=== PATIENT | female | born 1945 | race Caucasian/White ===

== ENCOUNTER 2016-10-15 11:31 | Outpatient (CLI) | payer OTHER, MEDICAID ==
[2016-10-15] MEDS ORDERED: MIDAZOLAM 2 MG/2 ML VIAL ONE (11:33)
[2016-10-15] MEDS ORDERED: PROPOFOL/EMULSION 500 MG/50 ML BOTTLE IV ONE (11:34)
[2016-10-15] MEDS ORDERED: PROPOFOL 200 MG/20 ML VIAL ONE (11:34)
[2016-10-15] MEDS ORDERED: SUCCINYLCHOLINE CHLORIDE 200 MG/10 ML VIAL ONE (11:47)
[2016-10-15] MEDS ORDERED: ROCURONIUM 100 MG/10 ML VIAL ONE (11:47)
[2016-10-15] MEDS ORDERED: DEXAMETHASONE 10 MG/ML VIAL ONE (12:00)
[2016-10-15] MEDS ORDERED: METOCLOPRAMIDE 10 MG/2 ML VIAL ONE (12:00)
[2016-10-15] MEDS ORDERED: LIDOCAINE 2% 2 ML INJ ONE (12:00)
[2016-10-15] MEDS ORDERED: GADOBUTROL 10 ML VIAL IVP ONE (12:23)
== END 2016-10-15 16:40 | disposition home health service (06) ==
LOC: FIMAGING 11:31
PROVIDERS: ATTEND Neurological Surgery
DX: D33.2 Benign neoplasm of brain, unspecified (principal); R94.02 Abnormal brain scan; M50.322 Other cervical disc degeneration at C5-C6 level; M50.323 Other cervical disc degeneration at C6-C7 level; M99.71 Connective tissue and disc stenosis of intervertebral foramina of cervical region
CPT/HCPCS: 70553; 72141; A9585; J2250; J2704; J2765; J0330

== ENCOUNTER → 2016-10-22 | Outpatient (CLI) | payer OTHER, MEDICAID | LOC: FIMAGING 11:50 | DX: Z12.31 Encounter for screening mammogram for malignant neoplasm of breast (principal) | CPT/HCPCS: G0202 ==

== ENCOUNTER → 2016-10-27 | Outpatient (CLI) | payer OTHER, MEDICAID | LOC: FIMAGING 08:41 | PROVIDERS: ATTEND Physician Assistant | DX: Z09 Encounter for follow-up examination after completed treatment for conditions other than malignant neoplasm (principal); Z98.1 Arthrodesis status ==

== ENCOUNTER → 2016-11-07 | Outpatient (CLI) | payer OTHER, MEDICAID ==
[~2016-11-07] MED LIST: IOPAMIDOL (ISOVUE 370) 100 ML BTL IV ONE
== END ==
LOC: FIMAGING 10:16
PROVIDERS: ATTEND Psychiatry & Neurology Neurology
DX: I63.311 Cerebral infarction due to thrombosis of right middle cerebral artery (principal); R42 Dizziness and giddiness
CPT/HCPCS: 70496; 70498; Q9967

== ENCOUNTER → 2016-11-11 | Outpatient (CLI) | payer OTHER, MEDICAID | LOC: BHFA 09:15 | PROVIDERS: ATTEND Internal Medicine | DX: I63.9 Cerebral infarction, unspecified (principal) ==

== ENCOUNTER 2016-11-14 05:54 | Observation (INO) | payer OTHER, MEDICAID ==
[2016-11-14] MEDS ORDERED: ceFAZolin 2 GM/DEXTROSE 100 ML IV ONE (06:00)
[2016-11-14] MEDS ORDERED: LIDOCAINE 1% 2 ML INJ ONE (06:07)
[2016-11-14] MEDS ORDERED: LR 1,000 ML IV ONE (06:20)
[2016-11-14] MEDS ORDERED: BUPIVACAINE 0.5% 30 ML SDV ONE (06:59)
[2016-11-14] MEDS ORDERED: SKIN ADHESIVE (DERMABOND) 1 EACH TP ONE (06:59)
[2016-11-14] MEDS ORDERED: fentaNYL 250 MCG/5 ML INJ ONE (07:07)
[2016-11-14] MEDS ORDERED: PROPOFOL/EMULSION 500 MG/50 ML BOTTLE IV ONE (07:07)
[2016-11-14] MEDS ORDERED: MIDAZOLAM 2 MG/2 ML VIAL ONE (07:08)
[2016-11-14] MEDS ORDERED: ROCURONIUM 50 MG/5 ML VIAL ONE (07:10)
[2016-11-14] MEDS ORDERED: LIDOCAINE 2% 100 MG/5 ML SYR ONE (07:11)
[2016-11-14] MEDS ORDERED: diphenhydrAMINE 25 MG CAP PO PRN (08:15)
[2016-11-14] MEDS ORDERED: ACETAMINOPHEN 325 MG TAB PO PRN (08:15)
[2016-11-14] MEDS ORDERED: ONDANSETRON DISINTEGRATING 4 MG TAB PO PRN (08:15)
[2016-11-14] MEDS ORDERED: ONDANSETRON 4 MG/2 ML VIAL IVP PRN (08:15)
[2016-11-14] MEDS ORDERED: fentaNYL 100 MCG/2 ML INJ ONE (08:24)
--- NOTE | 2016-11-14 08:28 | GOP ---
[f rep ] OPERATIVE REPORT DATE OF OPERATION: 11/14/2016 SURGEON: Agustina Traylor MD ESTIMATOR LUMBER: Kirsten Knight, PAC. ANESTHESIA: General. ANESTHESIOLOGIST: Dr. Scott. PREOPERATIVE DIAGNOSIS: Ventral hernia. POSTOPERATIVE DIAGNOSIS: Ventral hernia. PROCEDURE PERFORMED: Ventral hernia repair with mesh. FINDINGS: 4 x 4 cm defect. SPECIMENS: None. ESTIMATED BLOOD LOSS: 10 cc. INDICATIONS: The patient is a 71-year-old woman who had emergency abdominal surgery. She subsequen tly developed a ventral hernia. DESCRIPTION OF PROCEDURE: The patient was brought into the operating room, placed supine on the tab le. General anesthesia was administered. Her abdomen was prepped and draped in the usual sterile f ashion. I infiltrated all sites with 0.5% Marcaine prior to making incisions. I made an incision o n the lower part of her previous scar. I dissected down through the subcutaneous tissues and the sc ar until I encountered the fascial edge. I cleared away the fascial edge which was just to the lowe r left of the midline both above and below the fascia until it was well-defined. It was approximate ly 4 x 4 cm. I closed the fascia with #1 PDS. I was unable to place a retrorectus piece of mesh du e to the scarring, and did not want to place intra-abdominal mesh, so I therefore placed an onlay. It was self-fixating ProGrip mesh. It was sutured into place in 4 corners with 0 Surgilon. I close d a layer over the mesh with 3-0 Vicryl. I closed the skin with 3-0 Vicryl, followed by 4-0 Monocry l. Dermabond applied. She was awakened in the operating room, extubated, transferred to PACU in able condition. /[id number]/MODL
[2016-11-14] MEDS ORDERED: HYDROmorphONE/DILAUDID 2 MG/ML INJ ONE (08:41)
[2016-11-14] MEDS: oxyCODONE IR 5 MG TAB PO PRN ×3 (12:30→23:35)
[2016-11-15 07:38] VITALS: BP 123/71; PULSE 53; RESP 19; TEMP 97.7; O2SAT 93
[2016-11-15] MEDS: oxyCODONE IR 5 MG TAB PO PRN (09:05)
== END 2016-11-15 11:25 | disposition home or self-care (01) ==
LOC: FSGY 05:54 → F3E 08:14
PROVIDERS: ADMIT Surgery; ATTEND Surgery
PROC: 0WUF0JZ Supplement Abdominal Wall with Synthetic Substitute, Open Approach (ICD-10-PCS; principal; 2016-11-14 07:15)
DX: K43.9 Ventral hernia without obstruction or gangrene (principal); I10 Essential (primary) hypertension; F32.9 Major depressive disorder, single episode, unspecified; F41.9 Anxiety disorder, unspecified; E03.9 Hypothyroidism, unspecified; E55.9 Vitamin D deficiency, unspecified; Z85.850 Personal history of malignant neoplasm of thyroid; Z86.73 Personal history of transient ischemic attack (TIA), and cerebral infarction without residual deficits; Z90.49 Acquired absence of other specified parts of digestive tract
CPT/HCPCS: 49560; 49568; C1781; J0690; J1170; J2001; J2250; J2704; J3010

== ENCOUNTER → 2016-12-22 | Outpatient (CLI) | payer OTHER, MEDICAID | LOC: CIMAGING 09:12 | PROVIDERS: ATTEND Neurological Surgery | DX: Z09 Encounter for follow-up examination after completed treatment for conditions other than malignant neoplasm (principal); Z98.1 Arthrodesis status; I63.9 Cerebral infarction, unspecified; R74.8 Abnormal levels of other serum enzymes | CPT/HCPCS: 72100-PO; 80076-PO ==

== ENCOUNTER → 2017-01-28 | Outpatient (CLI) | payer OTHER, MEDICAID | LOC: FIMAGING 08:22 | PROVIDERS: ATTEND Internal Medicine | DX: R93.2 Abnormal findings on diagnostic imaging of liver and biliary tract (principal); N20.0 Calculus of kidney; Z90.49 Acquired absence of other specified parts of digestive tract ==

== ENCOUNTER → 2017-03-16 | Outpatient (CLI) | payer OTHER, MEDICAID ==
[~2017-03-16] MED LIST changes: -IOPAMIDOL (ISOVUE 370) 100 ML BTL IV ONE; +IOPAMIDOL (ISOVUE-300) 100 ML BTL ONE
== END ==
LOC: CIMAGING 09:33
PROVIDERS: ATTEND Internal Medicine
DX: R11.0 Nausea (principal); F41.9 Anxiety disorder, unspecified; R63.4 Abnormal weight loss; R68.81 Early satiety; I25.10 Atherosclerotic heart disease of native coronary artery without angina pectoris; Z98.84 Bariatric surgery status; Z90.49 Acquired absence of other specified parts of digestive tract
CPT/HCPCS: 74177; Q9967

== ENCOUNTER → 2017-04-22 | Outpatient (CLI) | payer OTHER, MEDICAID | LOC: FIMAGING 08:02 | PROVIDERS: ATTEND Internal Medicine | DX: R13.10 Dysphagia, unspecified (principal); R11.0 Nausea; K44.9 Diaphragmatic hernia without obstruction or gangrene; R93.3 Abnormal findings on diagnostic imaging of other parts of digestive tract; Z98.84 Bariatric surgery status ==

== ENCOUNTER → 2017-10-06 | Outpatient (CLI) | payer OTHER, MEDICAID | LOC: FIMAGING 15:05 | PROVIDERS: ATTEND Physician Assistant | DX: M51.36 Other intervertebral disc degeneration, lumbar region (principal); Z98.1 Arthrodesis status ==

== ENCOUNTER 2017-10-15 08:59 | Outpatient (CLI) | payer OTHER, MEDICAID ==
[2017-10-15] MEDS ORDERED: NS 1,000 ML IV SCH (09:45)
[2017-10-15] MEDS ORDERED: MIDAZOLAM 2 MG/2 ML VIAL IVP PRN (09:45)
[2017-10-15] MEDS ORDERED: NALOXONE HCL 0.4 MG/ML INJ IVP PRN (09:45)
[2017-10-15] MEDS ORDERED: FLUMAZENIL 0.5 MG/5 ML MDV IVP PRN (09:45)
[2017-10-15] MEDS ORDERED: fentaNYL 100 MCG/2 ML INJ IVP PRN (09:45)
[2017-10-15] MEDS ORDERED: MEPERIDINE 25 MG/ML SYR IVP PRN (09:45)
[2017-10-15] MEDS ORDERED: PROPOFOL/EMULSION 500 MG/50 ML BOTTLE IV ONE (12:06)
[2017-10-15] MEDS ORDERED: PROPOFOL 200 MG/20 ML VIAL ONE (12:06)
[2017-10-15] MEDS ORDERED: MIDAZOLAM 2 MG/2 ML VIAL IVP ONE (12:46)
--- NOTE | 2017-10-15 12:46 | PDANEPAE ---
ANE History of Present Illness L spine, brain, mri ANE Past Medical History - Cardiovascular History Hx Hypertension: Yes Hx Arrhythmias: No Hx Chest Pain: No Hx Coronary Artery / Peripheral Vascular Disease: No Hx CHF / Valvular Disease: No Hx Palpitations: No - Pulmonary History Hx COPD: No Hx Asthma/Reactive Airway Disease: No Hx Recent Upper Respiratory Infection: No Hx Oxygen in Use at Home: No Hx Sleep Apnea: No Sleep Apnea Screening Result - Last Documented: Negative Pulmonary History Comment: TIA. - Neurologic History Hx Cerebrovascular Accident: No Hx Seizures: No Hx Dementia: No Neurologic History Comment: tia X3. migraineS 3-4 PER MONTH NOTHING HELPS. hx of back surgeries - Endocrine History Hx Diabetes: No Endocrine History Comment: thyroidectomy. hx of thyroid ca - Renal History Hx Renal Disorders: Yes Renal History Comment: incontinence at times - Liver History Hx Hepatic Disorders: No - Neurological & Psychiatric Hx Hx Neurological and Psychiatric Disorders: Yes Neurological / Psychiatric History Comment: anxiety. depression. claustrophobia - Cancer History Hx Cancer: Yes Cancer History Comment: thyroid - Congenital Disorder History Hx Congenital Disorders: No - GI History Hx Gastrointestinal Disorders: Yes Gastrointestinal History Comment: gastric bypass - Other Health History Other Health History: LT FOOT DROP. IMELDA LOWER EXT NUMBNESS. RECENT VERTIGO. OSTEOPENIA. NEUTROPENIA - Chronic Pain History Chronic Pain: Yes (chronic pain) - Surgical History Prior Surgeries: BOWEL RESECTION 12/2015. RT TOTAL HIP. left knee replacement. 4 back surgeries- rods and screws. gastric bypass 2006. thyroidectomy. hysterectomy 1994. appy. clarke ANE Review of Systems Review of systems is: negative Review of Systems: - Exercise capacity METS (RN): 3 METS ANE Patient History - Allergies Allergies/Adverse Reactions: morphine [Morphine] Allergy (Severe, Verified 10/15/17 12:23) Dyspnea aspirin [Aspirin] Allergy (Unknown, Verified 10/15/17 12:23) ibuprofen [Ibuprofen] Allergy (Unknown, Verified 10/15/17 12:23) - Home Medications Home medications: home medication list seen and reviewed Home Medications: ALPRAZolam [Xanax 0.25 MG (*)] 0.25 mg PO BID PRN 11/14/16 [Last Taken Unknown] Aspirin [Aspirin 81mg (*)] 81 mg PO DAILY 11/14/16 [Last Taken 11/14/16] Carisoprodol [Soma (*)] 350 mg PO HS PRN 11/14/16 [Last Taken 11/13/16] Cholecalciferol Vit D3 [Vitamin D3 (*)] 1,000 units PO BID 11/14/16 [Last Taken 11/14/16] Cyanocobalamin [Vitamin B12 (*)] 1,000 mcg PO DAILY 11/14/16 [Last Taken ] Diazepam [Valium 5 MG (*)] 5 mg PO Q3 PRN 11/14/16 [Last Taken Unknown] Diclofenac Sodium [Voltaren 75 MG (*)] 100 mg PO DAILY 11/14/16 [Last Taken ] FLUoxetine [Prozac 20 MG (*)] 40 mg PO BID 11/14/16 [Last Taken 10/15/17] Levothyroxine [Synthroid 112 mcg (*)] 112 mcg PO SUMOFRSA 11/14/16 [Last Taken 10/15/17] Levothyroxine [Synthroid 125 mcg (*)] 1 tab PO TUWETH 11/14/16 [Last Taken 11/13] Lisinopril [Zestril 2.5 mg (*)] 2.5 mg PO DAILY 11/14/16 [Last Taken 11/14/16] Polyethylene Glycol 3350 [Miralax 17 gm (*)] 17 gm PO HS PRN 11/14/16 [Last Taken 11/13/16] Pantoprazole Sodium 40 mg PO DAILY 10/07/17 [Last Taken Unknown] Wellbutrin 150mg XL 300 mg PO DAILY 10/07/17 [Last Taken Unknown] traZODONE 100MG (*) 100 mg PO HS 10/07/17 [Last Taken Unknown] - NPO status NPO Status: no food or drink >8 hours - Smoking Hx Smoking Status: Never smoked - Family Anes Hx Family Anes Hx: none Family Hx Anesthesia Complications: none ANE Labs/Vital Signs - Vital Signs Blood Pressure: 126/77 Heart Rate: 57 Respiratory Rate: 18 O2 Sat (%): 98 Height: 170.18 cm Weight: 59.421 kg ANE Physical Exam - Airway Neck exam: FROM Mallampati Score: Class 2 Mouth exam: normal dental/mouth exam - Pulmonary Pulmonary: no respiratory distress - Cardiovascular Cardiovascular: regular rate and rhythym - ASA Status ASA Status: III ANE Anesthesia Plan Anesthesia Plan: GA w LMA
[2017-10-15] MEDS ORDERED: GADOBUTROL 10 ML VIAL IVP ONE (13:09)
[2017-10-15 14:43] VITALS: TEMP 97.7
[2017-10-15 15:31] VITALS: BP 127/67; PULSE 60; RESP 18; O2SAT 95
[2017-10-15] MEDS ORDERED: DEXAMETHASONE 10 MG/ML VIAL ONE (18:22)
[2017-10-15] MEDS ORDERED: ONDANSETRON 4 MG/2 ML VIAL ONE (18:22)
[2017-10-15] MEDS ORDERED: LIDOCAINE 2% 2 ML INJ ONE (20:44)
== END 2017-10-15 15:28 | disposition home or self-care (01) ==
LOC: FIMAGING 08:59
PROVIDERS: ATTEND Physician Assistant
PROC: BR39ZZZ Magnetic Resonance Imaging (MRI) of Lumbar Spine (ICD-10-PCS; 2017-10-15)
PROC: B030Y0Z Magnetic Resonance Imaging (MRI) of Brain using Other Contrast, Unenhanced and Enhanced (ICD-10-PCS; principal; 2017-10-15 14:26)
DX: M54.5 Low back pain (principal); M54.12 Radiculopathy, cervical region; H81.399 Other peripheral vertigo, unspecified ear; M51.36 Other intervertebral disc degeneration, lumbar region; R93.8 Abnormal findings on diagnostic imaging of other specified body structures; Z86.011 Personal history of benign neoplasm of the brain; Z86.73 Personal history of transient ischemic attack (TIA), and cerebral infarction without residual deficits; Z98.1 Arthrodesis status
CPT/HCPCS: 70553; 72148; A9585; J1100; J2250; J2405; J2704

== ENCOUNTER 2017-12-07 14:35 | Outpatient (CLI) | payer OTHER, MEDICAID ==
[2017-12-07] MEDS ORDERED: PROPOFOL/EMULSION 500 MG/50 ML BOTTLE IV ONE (14:43)
[2017-12-07] MEDS ORDERED: PROPOFOL 200 MG/20 ML VIAL ONE (14:43)
[2017-12-07] MEDS ORDERED: NS 1,000 ML IV SCH (15:15)
--- NOTE | 2017-12-07 15:39 | PDANEPAE ---
ANE History of Present Illness mri R hip ANE Past Medical History - Cardiovascular History Hx Hypertension: Yes Hx Arrhythmias: No Hx Chest Pain: No Hx Coronary Artery / Peripheral Vascular Disease: No Hx CHF / Valvular Disease: No Hx Palpitations: No Cardiovascular History Comment: currently off BP meds per PCP - Pulmonary History Hx COPD: No Hx Asthma/Reactive Airway Disease: No Hx Recent Upper Respiratory Infection: No Hx Oxygen in Use at Home: No Hx Sleep Apnea: No Sleep Apnea Screening Result - Last Documented: Negative Pulmonary History Comment: TIA. - Neurologic History Hx Cerebrovascular Accident: No Hx Seizures: No Hx Dementia: No Neurologic History Comment: tia X3. hx of vertigo. hx of back surgeries. meningioma removal 2011 - Endocrine History Hx Diabetes: No Endocrine History Comment: thyroidectomy. hx of thyroid ca - Renal History Hx Renal Disorders: Yes Renal History Comment: incontinence at times - Liver History Hx Hepatic Disorders: No - Neurological & Psychiatric Hx Hx Neurological and Psychiatric Disorders: Yes Neurological / Psychiatric History Comment: anxiety. depression. claustrophobia - Cancer History Hx Cancer: Yes Cancer History Comment: thyroid - Congenital Disorder History Hx Congenital Disorders: No - GI History Hx Gastrointestinal Disorders: Yes Gastrointestinal History Comment: gastric bypass ; bowel resection - Other Health History Other Health History: LT FOOT DROP. IMELDA LOWER EXT NUMBNESS. RECENT VERTIGO. OSTEOPENIA. NEUTROPENIA - Chronic Pain History Chronic Pain: Yes (chronic pain) - Surgical History Prior Surgeries: BOWEL RESECTION 12/2015. RT TOTAL HIP. left knee replacement. 4 back surgeries- rods and screws. gastric bypass 2006. thyroidectomy. hysterectomy 1994. appy. clarke. meningioma ANE Review of Systems Review of systems is: negative Review of Systems: - Exercise capacity METS (RN): 1 METS ANE Patient History - Allergies Allergies/Adverse Reactions: morphine [Morphine] Allergy (Severe, Verified 12/04/17 17:27) Dyspnea ibuprofen [Ibuprofen] Allergy (Unknown, Verified 12/04/17 17:27) - Home Medications Home medications: home medication list seen and reviewed Home Medications: ALPRAZolam [Xanax 0.25 MG (*)] 0.25 mg PO BID PRN 11/14/16 [Last Taken 12/05/17] Aspirin [Aspirin 81mg (*)] 81 mg PO DAILY 11/14/16 [Last Taken 12/07/17] Carisoprodol [Soma (*)] 350 mg PO HS PRN 11/14/16 [Last Taken 12/06/17] Cholecalciferol Vit D3 [Vitamin D3 (*)] 1,000 units PO BID 11/14/16 [Last Taken 12/07/17] Cyanocobalamin [Vitamin B12 (*)] 1,000 mcg PO DAILY 11/14/16 [Last Taken ] Diazepam [Valium 5 MG (*)] 5 mg PO Q3 PRN 11/14/16 [Last Taken 11/16/17] Diclofenac Sodium [Voltaren 75 MG (*)] 100 mg PO DAILY 11/14/16 [Last Taken ] FLUoxetine [Prozac 20 MG (*)] 40 mg PO BID 11/14/16 [Last Taken 12/07/17] Levothyroxine [Synthroid 112 mcg (*)] 112 mcg PO SUMOFRSA 11/14/16 [Last Taken 12/07/17] Levothyroxine [Synthroid 125 mcg (*)] 1 tab PO TUWETH 11/14/16 [Last Taken 12/03] Polyethylene Glycol 3350 [Miralax 17 gm (*)] 17 gm PO HS PRN 11/14/16 [Last Taken 12/06/17] Pantoprazole Sodium 40 mg PO DAILY 10/07/17 [Last Taken 12/07/17] Wellbutrin 150mg XL 450 mg PO DAILY 10/07/17 [Last Taken 12/07/17] traZODONE 100MG (*) 150 mg PO HS 10/07/17 [Last Taken 12/06/17] Gabapentin [Neurontin 300 MG (*)] 300 mg PO TID 12/04/17 [Last Taken 12/07/17] Lipase/Protease/Amylase [Creon Dr 3,000 Units Capsule] 1 each PO AC 12/04/17 [ Last Taken 12/06/17] Ondansetron HCl [Zofran] PRN 12/04/17 [Last Taken 12/03/17] Oxycodone HCl 5 mg PO Q4-6PRN PRN 12/04/17 [Last Taken 12/06/17] - NPO status NPO Status: no food or drink >8 hours - Anes Hx Anes Hx: no prior problems - Smoking Hx Smoking Status: Never smoked - Family Anes Hx Family Anes Hx: none Family Hx Anesthesia Complications: none ANE Labs/Vital Signs - Vital Signs Blood Pressure: 139/83 Heart Rate: 54 Respiratory Rate: 12 O2 Sat (%): 98 Height: 170.18 cm Weight: 59.421 kg ANE Physical Exam - Airway Neck exam: FROM Mallampati Score: Class 1 Mouth exam: normal dental/mouth exam - Pulmonary Pulmonary: no respiratory distress - Cardiovascular Cardiovascular: regular rate and rhythym - ASA Status ASA Status: III ANE Anesthesia Plan Anesthesia Plan: GA w LMA
[2017-12-07] MEDS ORDERED: SUCCINYLCHOLINE CHLORIDE 200 MG/10 ML VIAL ONE (15:45)
[2017-12-07] MEDS ORDERED: MIDAZOLAM 2 MG/2 ML VIAL ONE (15:48)
[2017-12-07] MEDS ORDERED: ONDANSETRON 4 MG/2 ML VIAL IVP PRN (17:01)
[2017-12-07] MEDS ORDERED: NALOXONE HCL 0.4 MG/ML INJ IVP PRN (17:01)
[2017-12-07] MEDS ORDERED: HYDROCODONE/APAP 5/325 TAB PO PRN (17:01)
[2017-12-07] MEDS ORDERED: fentaNYL 100 MCG/2 ML INJ IVP PRN (17:01)
[2017-12-07] MEDS ORDERED: ACETAMINOPHEN 500 MG TAB PO PRN (17:01)
[2017-12-07] MEDS ORDERED: MEPERIDINE 25 MG/ML SYR IVP PRN (17:01)
[2017-12-07] MEDS ORDERED: DEXAMETHASONE 4 MG/ML VIAL IVP PRN (17:01)
--- NOTE | 2017-12-07 17:03 | POSTANESTH ---
Post Anesthetic Evaluation Cardiovascular Status: Similar to Pre-Op Cond Respiratory Status: Normal, Stable, Similar to Pre-op Cond. Level of Consciousness/Mental Status: Can Participate in Eval, Mildly Sleepy, Arousable Pain Control: Adequate, Prn Tx Ordered Nausea/Vomiting Control: Adequate, Prn Tx Ordered Complications Possibly Related to Anesthesia: None Noted
[2017-12-07 17:39] VITALS: BP 136/77
[2017-12-07] MEDS ORDERED: LIDOCAINE 2% 2 ML INJ ONE (20:00)
[2017-12-07] MEDS ORDERED: DEXAMETHASONE 10 MG/ML VIAL ONE (20:00)
[2017-12-07] MEDS ORDERED: ONDANSETRON 4 MG/2 ML VIAL ONE (20:00)
== END 2017-12-07 18:11 | disposition home or self-care (01) ==
LOC: FIMAGING 14:35
DX: G89.28 Other chronic postprocedural pain (principal); Z96.641 Presence of right artificial hip joint; I10 Essential (primary) hypertension; F41.8 Other specified anxiety disorders; Z85.850 Personal history of malignant neoplasm of thyroid; Z98.84 Bariatric surgery status
CPT/HCPCS: 73721; J0330; J1100; J2250; J2405; J2704

== ENCOUNTER → 2018-01-12 | Outpatient (CLI) | payer OTHER, MEDICAID | LOC: FIMAGING 08:38 | PROVIDERS: ATTEND Internal Medicine Gastroenterology | DX: K44.9 Diaphragmatic hernia without obstruction or gangrene (principal); K21.9 Gastro-esophageal reflux disease without esophagitis; Z98.84 Bariatric surgery status ==

== ENCOUNTER 2018-01-21 10:44 | Outpatient (CLI) | payer OTHER, MEDICAID ==
[2018-01-21] MEDS ORDERED: PROPOFOL/EMULSION 500 MG/50 ML BOTTLE IV ONE (11:11)
[2018-01-21] MEDS ORDERED: PROPOFOL 200 MG/20 ML VIAL ONE (11:11)
[2018-01-21] MEDS ORDERED: SUCCINYLCHOLINE CHLORIDE 200 MG/10 ML VIAL ONE (11:31)
[2018-01-21] MEDS ORDERED: ROCURONIUM 100 MG/10 ML VIAL ONE (11:32)
[2018-01-21] MEDS ORDERED: MIDAZOLAM 2 MG/2 ML VIAL ONE (12:12)
[2018-01-21] MEDS ORDERED: MIDAZOLAM 2 MG/2 ML VIAL IVP ONE (12:15)
--- NOTE | 2018-01-21 12:17 | PDANEPAE ---
ANE Past Medical History - Cardiovascular History Hx Hypertension: Yes Hx Arrhythmias: No Hx Chest Pain: No Hx Coronary Artery / Peripheral Vascular Disease: No Hx CHF / Valvular Disease: No Hx Palpitations: No Cardiovascular History Comment: currently off BP meds per PCP - Pulmonary History Hx COPD: No Hx Asthma/Reactive Airway Disease: No Hx Recent Upper Respiratory Infection: No Hx Oxygen in Use at Home: No Hx Sleep Apnea: No Sleep Apnea Screening Result - Last Documented: Negative Pulmonary History Comment: TIA. - Neurologic History Hx Cerebrovascular Accident: No Hx Seizures: No Hx Dementia: No Neurologic History Comment: tia X3. hx of vertigo. hx of back surgeries. meningioma removal 2011 - Endocrine History Hx Diabetes: No Hypothyroid: Yes Hyperthyroid: No Obesity: no Endocrine History Comment: thyroidectomy. hx of thyroid ca - Renal History Hx Renal Disorders: Yes Renal History Comment: incontinence at times - Liver History Hx Hepatic Disorders: No - Neurological & Psychiatric Hx Hx Neurological and Psychiatric Disorders: Yes Neurological / Psychiatric History Comment: anxiety. depression. claustrophobia - Cancer History Hx Cancer: Yes Cancer History Comment: thyroid - Congenital Disorder History Hx Congenital Disorders: No - GI History GERD: moderate Hx Gastrointestinal Disorders: Yes Gastrointestinal History Comment: gastric bypass ; bowel resection - Other Health History Other Health History: LT FOOT DROP. IMELDA LOWER EXT NUMBNESS. RECENT VERTIGO. OSTEOPENIA. NEUTROPENIA - Chronic Pain History Chronic Pain: Yes (chronic pain) - Surgical History Prior Surgeries: BOWEL RESECTION 12/2015. RT TOTAL HIP. left knee replacement. 4 back surgeries- rods and screws. gastric bypass 2006. thyroidectomy. hysterectomy 1994. appy. clarke. meningioma ANE Review of Systems Review of Systems: - Exercise capacity METS (RN): 3 METS ANE Patient History - Allergies Allergies/Adverse Reactions: morphine [Morphine] Allergy (Severe, Verified 01/15/18 16:01) Dyspnea ibuprofen [Ibuprofen] Allergy (Unknown, Verified 01/15/18 16:01) - Home Medications Home Medications: ALPRAZolam [Xanax 0.25 MG (*)] 0.25 mg PO BID PRN 11/14/16 [Last Taken 01/20/18] Aspirin [Aspirin 81mg (*)] 81 mg PO DAILY 11/14/16 [Last Taken 01/20/18] Carisoprodol [Soma (*)] 350 mg PO HS PRN 11/14/16 [Last Taken 01/20/18] Cholecalciferol Vit D3 [Vitamin D3 (*)] 1,000 units PO BID 11/14/16 [Last Taken 01/20/18] Cyanocobalamin [Vitamin B12 (*)] 1,000 mcg PO DAILY 11/14/16 [Last Taken ] Diazepam [Valium 5 MG (*)] 5 mg PO Q3 PRN 11/14/16 [Last Taken 01/20/18] Diclofenac Sodium [Voltaren 75 MG (*)] 100 mg PO DAILY 11/14/16 [Last Taken ] FLUoxetine [Prozac 20 MG (*)] 40 mg PO BID 11/14/16 [Last Taken 01/20/18] Levothyroxine [Synthroid 112 mcg (*)] 112 mcg PO SUMOFRSA 11/14/16 [Last Taken 01/20/18] Levothyroxine [Synthroid 125 mcg (*)] 1 tab PO TUWETH 11/14/16 [Last Taken 01/20] Polyethylene Glycol 3350 [Miralax 17 gm (*)] 17 gm PO HS PRN 11/14/16 [Last Taken 01/20/18] Pantoprazole Sodium 40 mg PO DAILY 10/07/17 [Last Taken 01/20/18] Wellbutrin 150mg XL 450 mg PO DAILY 10/07/17 [Last Taken 01/20/18] traZODONE 100MG (*) 150 mg PO HS 10/07/17 [Last Taken 01/20/18] Gabapentin [Neurontin 300 MG (*)] 300 mg PO TID 12/04/17 [Last Taken 01/20/18] Lipase/Protease/Amylase [Creon Dr 3,000 Units Capsule] 1 each PO AC 12/04/17 [ Last Taken 01/20/18] Ondansetron HCl [Zofran] PRN 12/04/17 [Last Taken 01/20/18] - Anes Hx Anes Hx: no prior problems - Smoking Hx Smoking Status: Never smoked Marijuana use: No - Alcohol Use Alcohol Use: Sober - Family Anes Hx Family Anes Hx: neg - N/A Family Hx Anesthesia Complications: none ANE Labs/Vital Signs - Vital Signs Blood Pressure: 130/81 Heart Rate: 50 Respiratory Rate: 12 O2 Sat (%): 98 Height: 175.26 cm Weight: 58.967 kg ANE Physical Exam - Airway Neck exam: decreased ROM Mallampati Score: Class 2 Mouth exam: normal dental/mouth exam - Pulmonary Pulmonary: no respiratory distress, no rales or rhonchi, clear to auscultation - Cardiovascular Cardiovascular: regular rate and rhythym, systolic murmur - ASA Status ASA Status: III ANE Anesthesia Plan Anesthesia Plan: general endotracheal anesthesia Total IV Anesthesia: No
[2018-01-21] MEDS ORDERED: fentaNYL 100 MCG/2 ML INJ ONE (12:22)
[2018-01-21] MEDS ORDERED: ONDANSETRON 4 MG/2 ML VIAL IVP PRN (13:31)
[2018-01-21] MEDS ORDERED: PHENYLEPHRINE HCL 100 MCG/ML SYR IVP PRN (13:31)
[2018-01-21] MEDS ORDERED: epHEDrine SULFATE 10 MG/ML SYR IVP PRN (13:31)
[2018-01-21] MEDS ORDERED: NALOXONE HCL 0.4 MG/ML INJ IVP PRN (13:31)
[2018-01-21] MEDS ORDERED: ACETAMINOPHEN 500 MG TAB PO PRN (13:31)
[2018-01-21] MEDS ORDERED: LR 500 ML IV PRN (13:31)
--- NOTE | 2018-01-21 13:33 | POSTANESTH ---
Post Anesthetic Evaluation Cardiovascular Status: Normal, Stable Respiratory Status: Normal, Stable Level of Consciousness/Mental Status: Can Participate in Eval Pain Control: Adequate, Prn Tx Ordered Nausea/Vomiting Control: Adequate, Prn Tx Ordered Complications Possibly Related to Anesthesia: None Noted
[2018-01-21] MEDS ORDERED: LIDOCAINE 2% 2 ML INJ ONE (14:32)
[2018-01-21] MEDS ORDERED: DIGOXIN 500 MCG/2 ML AMP ONE (14:32)
[2018-01-21] MEDS ORDERED: BUPIVACAINE/DEXTROSE 7.5MG/ML 2 ML SPINAL AMP SP ONE (14:32)
[2018-01-21 14:45] VITALS: BP 134/78
== END 2018-01-21 14:38 | disposition home or self-care (01) ==
LOC: FIMAGING 10:44
PROVIDERS: ATTEND Physician Assistant
DX: M50.11 Cervical disc disorder with radiculopathy, high cervical region (principal); M48.02 Spinal stenosis, cervical region; F40.240 Claustrophobia; E03.9 Hypothyroidism, unspecified; K21.9 Gastro-esophageal reflux disease without esophagitis; H81.399 Other peripheral vertigo, unspecified ear; D33.2 Benign neoplasm of brain, unspecified; Z98.1 Arthrodesis status
CPT/HCPCS: 72141; J0330; J1160; J2250; J2704; J3010; J2370

== ENCOUNTER 2018-03-01 07:30 | Inpatient (IN) | payer OTHER, MEDICAID ==
[2018-03-01] MEDS ORDERED: GABAPENTIN 300 MG CAP PO ONE (10:21)
[2018-03-01] MEDS ORDERED: ACETAMINOPHEN 500 MG TAB PO ONE (10:21)
[2018-03-01] MEDS ORDERED: LR 1,000 ML IV ONE (10:21)
[2018-03-01] MEDS ORDERED: LIDOCAINE 1% 2 ML INJ ID PRN (10:21)
[2018-03-01] MEDS ORDERED: ceFAZolin 2 GM/DEXTROSE 100 ML IV ONE (10:21)
[2018-03-01] MEDS ORDERED: CHLORHEXIDINE GLUC HIBICLENS 118 ML BTL TP ONE (10:52)
[2018-03-01] MEDS ORDERED: THROMBIN (BOVINE) 20,000 UNIT VIAL TP ONE ×2 (10:52→12:01)
[2018-03-01] MEDS ORDERED: BUPIVACAINE 0.25% 30 ML SDV ONE (10:52)
[2018-03-01] MEDS ORDERED: EPINEPHrine 1 MG/ML INJ ONE (10:52)
[2018-03-01] MEDS ORDERED: BACITRACIN 50,000 UNITS/10 ML SYR IRR ONE (10:53)
--- NOTE | 2018-03-01 10:58 | PDHPUP ---
History & Physical Update H&P update statement: This history and physical update is based on an assessment of the patient which was completed after admission or registration (within 24 hours), but prior to the surgery/procedure. H&P update: H&P reviewed & patient examined, no change in patient's condition since H&P completed
--- NOTE | 2018-03-01 11:13 | PDANEPAE ---
ANE Past Medical History - Cardiovascular History Hx Hypertension: Yes Hx Arrhythmias: No Hx Chest Pain: No Hx Coronary Artery / Peripheral Vascular Disease: No Hx CHF / Valvular Disease: No Hx Palpitations: No Cardiovascular History Comment: currently off BP meds per PCP - Pulmonary History Hx COPD: No Hx Asthma/Reactive Airway Disease: No Hx Recent Upper Respiratory Infection: No Hx Oxygen in Use at Home: No Hx Sleep Apnea: No Sleep Apnea Screening Result - Last Documented: Negative Pulmonary History Comment: TIA. - Neurologic History Hx Cerebrovascular Accident: No Hx Seizures: No Hx Dementia: No Neurologic History Comment: tia X3. hx of vertigo. hx of back surgeries. meningioma removal 2011 - Endocrine History Hx Diabetes: No Hypothyroid: Yes Hyperthyroid: No Obesity: no Endocrine History Comment: thyroidectomy. hx of thyroid ca - Renal History Hx Renal Disorders: Yes Renal History Comment: incontinence at times - Liver History Hx Hepatic Disorders: No - Neurological & Psychiatric Hx Hx Neurological and Psychiatric Disorders: Yes Neurological / Psychiatric History Comment: anxiety. depression. claustrophobia - Cancer History Hx Cancer: Yes Cancer History Comment: thyroid - Congenital Disorder History Hx Congenital Disorders: No Congenital History Comment: heart disease - GI History GERD: moderate Hx Gastrointestinal Disorders: Yes Gastrointestinal History Comment: gastric bypass ; bowel resection - Other Health History Other Health History: LT FOOT DROP. IMELDA LOWER EXT NUMBNESS. RECENT VERTIGO. OSTEOPENIA. NEUTROPENIA - Chronic Pain History Chronic Pain: Yes (chronic pain) - Surgical History Prior Surgeries: BOWEL RESECTION 12/2015. RT TOTAL HIP. left knee replacement. 4 back surgeries- rods and screws. gastric bypass 2006. thyroidectomy. hysterectomy 1994. appy. clarke. meningioma ANE Review of Systems Review of Systems: - Exercise capacity Exercise capacity: <4 METS METS (RN): 3 METS ANE Patient History - Allergies Allergies/Adverse Reactions: morphine [Morphine] Allergy (Severe, Verified 02/08/18 13:12) Dyspnea ibuprofen [Ibuprofen] Allergy (Unknown, Verified 02/08/18 13:12) Other-Enter Comments - Home Medications Home Medications: Cyanocobalamin [Vitamin B12 (*)] 2,500 mcg PO DAILY 11/14/16 [Last Taken 08:00] FLUoxetine [Prozac 20 MG (*)] 40 mg PO BID 11/14/16 [Last Taken 02/28/18 22:00] Levothyroxine [Synthroid 112 mcg (*)] 112 mcg PO SUMOFRSA@11/14/16 [Last Taken 02/28/18 08:00] Levothyroxine [Synthroid 125 mcg (*)] 125 mg PO TUWETH@11/14/16 [Last Taken 02/25/18] Pantoprazole Sodium [Protonix 40mg (*)] 40 mg PO DAILY 10/07/17 [Last Taken 04/10 08:00] buPROPion [Wellbutrin 75mg (*)] 300 mg PO DAILY 10/07/17 [Last Taken 02/28/18 08 :00] traZODone [traZODONE 100MG (*)] 200 mg PO HS 10/07/17 [Last Taken 02/28/18 22:00 ] Gabapentin [Neurontin 300 MG (*)] 600 - 900 mg PO TID 12/04/17 [Last Taken 02/28 08:00] Ondansetron HCl [Zofran] 4 mg PO DAILY PRN 12/04/17 [Last Taken 02/22/18] Acetaminophen [Tylenol 325mg (*)] 325 mg PO DAILY PRN 02/08/18 [Last Taken 02/27] Cholecalciferol Vit D3 [Vitamin D3 2000 units tab (OTC)] 2,000 units PO DAILY [Last Taken 02/28/18 08:00] Diclofenac Sodium [Voltaren-XR] 100 mg PO DAILY 02/08/18 [Last Taken 11/22/17] Lipase 24,000/Amylase/Protease [Creon 24 (*)] 2 cap PO TIDMEAL 02/08/18 [Last Taken 02/28/18 17:00] buPROPion [Wellbutrin 75mg (*)] 150 mg PO HS 02/08/18 [Last Taken 02/28/18 22:00 ] - NPO status NPO Since - Liquids (Date): 02/28/18 NPO Since - Liquids (Time): 21:00 NPO Since - Solids (Date): 02/28/18 NPO Since - Solids (Time): 21:00 - Anes Hx Anes Hx: no prior problems - Smoking Hx Smoking Status: Never smoked Marijuana use: No - Alcohol Use Alcohol Use: None - Family Anes Hx Family Anes Hx: neg - N/A Family Hx Anesthesia Complications: none ANE Labs/Vital Signs - Vital Signs Blood Pressure: 136/84 Heart Rate: 62 Respiratory Rate: 20 O2 Sat (%): 98 Height: 170.18 cm Weight: 56.699 kg ANE Physical Exam - Airway Neck exam: decreased ROM Mallampati Score: Class 3 Mouth exam: normal dental/mouth exam - Pulmonary Pulmonary: no respiratory distress, no rales or rhonchi, clear to auscultation - Cardiovascular Cardiovascular: regular rate and rhythym, no murmur, rub, or gallop - ASA Status ASA Status: II ANE Anesthesia Plan Anesthesia Plan: general endotracheal anesthesia Total IV Anesthesia: No
[2018-03-01] MEDS ORDERED: MIDAZOLAM 2 MG/2 ML VIAL ONE (11:44)
[2018-03-01] MEDS ORDERED: fentaNYL 100 MCG/2 ML INJ ONE ×3 (11:56→17:05)
[2018-03-01] MEDS ORDERED: REMIFENTANIL HCL 1 MG VIAL ONE (11:56)
[2018-03-01] MEDS ORDERED: PROPOFOL 200 MG/20 ML VIAL ONE (11:57)
[2018-03-01] MEDS ORDERED: PROPOFOL/EMULSION 500 MG/50 ML BOTTLE IV ONE (11:57)
[2018-03-01] MEDS ORDERED: DEXAMETHASONE 4 MG/ML VIAL ONE (11:58)
[2018-03-01] MEDS ORDERED: ONDANSETRON 4 MG/2 ML VIAL ONE (11:58)
[2018-03-01] MEDS ORDERED: ROCURONIUM 50 MG/5 ML VIAL ONE (11:58)
[2018-03-01] MEDS ORDERED: RANITIDINE 50 MG/2 ML VIAL ONE (11:59)
[2018-03-01] MEDS ORDERED: MIDAZOLAM 2 MG/2 ML VIAL IVP ONE (12:00)
[2018-03-01] MEDS ORDERED: LIDOCAINE 2% 5 ML SDV ONE (12:05)
[2018-03-01] MEDS ORDERED: ePHEDrine SULFATE 25 MG/5 ML SYR ONE ×2 (12:45→16:01)
[2018-03-01] MEDS ORDERED: LACTULOSE 20 GM/30 ML UDCUP PO PRN (13:34)
[2018-03-01] MEDS ORDERED: MAGNESIUM HYDROXIDE 30 ML UDCUP PO PRN (13:34)
[2018-03-01] MEDS ORDERED: NALOXONE HCL 0.4 MG/ML INJ IVP PRN ×2 (13:34→14:20)
[2018-03-01] MEDS ORDERED: BISACODYL 10 MG SUPP PR PRN (13:34)
[2018-03-01] MEDS ORDERED: ONDANSETRON DISINTEGRATING 4 MG TAB PO PRN (13:34)
[2018-03-01] MEDS ORDERED: ONDANSETRON 4 MG/2 ML VIAL IVP PRN ×2 (13:34→14:20)
[2018-03-01] MEDS ORDERED: HYDROmorphONE/DILAUDID 6 MG/30 ML PCA IV PRN (13:34)
[2018-03-01] MEDS ORDERED: diphenhydrAMINE 25 MG CAP PO PRN (13:34)
[2018-03-01] MEDS ORDERED: NS 1,000 ML IV SCH (13:45)
[2018-03-01] MEDS ORDERED: LABETALOL HCL 5 MG/ML 20 ML MDV IVP PRN (14:20)
[2018-03-01] MEDS ORDERED: HYDROmorphONE/DILAUDID 1 MG/ML INJ IVP PRN (14:20)
[2018-03-01] MEDS ORDERED: oxyCODONE IR 5 MG TAB PO PRN (14:20)
[2018-03-01] MEDS ORDERED: HYDROCODONE/APAP 5/325 TAB PO PRN (14:20)
[2018-03-01] MEDS ORDERED: LR 500 ML IV PRN (14:20)
[2018-03-01] MEDS ORDERED: PROMETHAZINE HCL 25 MG/ML INJ IVP PRN (14:20)
[2018-03-01] MEDS ORDERED: PHENYLEPHRINE HCL 100 MCG/ML SYR IVP PRN (14:20)
[2018-03-01] MEDS ORDERED: ACETAMINOPHEN 500 MG TAB PO PRN (14:20)
[2018-03-01] MEDS ORDERED: PHENYLEPHRINE HCL 100 MCG/ML SYR ONE ×2 (16:04→16:17)
[2018-03-01] MEDS ORDERED: GLYCOPYRROLATE 0.2 MG/1 ML VIAL ONE ×2 (16:04)
--- NOTE | 2018-03-01 16:47 | POSTOPPROG ---
Post Op Note Date of Operation: 03/01/18 Surgeon: Arianna Ho Caramel Cutter Helper: Yayo Mtz NP Anesthesiologist: Becca Anesthesia: GET(General Endotracheal) Pre-op Diagnosis: Lumbar stenosis Procedure: L1-2 TLIF with tie into existing hardware L2-S1 Inf/Abcess present in the surg proc area at time of surgery?: No Depth: Deep Incisional (Fascial) EBL: 100-500 Total fluids administered: see anesthesia Complications: none Drains: Crispin Mccray Date of Surgery: 03/01/18 Post Op Day: 0 Assessment/Plan: Assessment: 72 yr old F s/p L1-2 TLIF with tie into existing hardware L2-S1 Plan: -Pain management, [employer]PER[employer]OR ordered if needed -PT/OT -Case management consulted-patient requesting Powerback rehab -post op xrays pending in am -SKY to suction -Please call neurosurgery with any questions/concerns Subjective: waking up in PACU Objective: Waking up in PACU ESCALONA x4 5/5 BLE Sensation intact to light touch BLE Dressing CDI SKY patent
[2018-03-01] MEDS ORDERED: DIAZEPAM 5 MG/ML 1 ML SYR IVP ONE (16:56)
--- NOTE | 2018-03-01 16:56 | POSTANESTH ---
Post Anesthetic Evaluation Cardiovascular Status: Normal, Stable Respiratory Status: Normal, Stable Level of Consciousness/Mental Status: Mildly Sleepy, Arousable Pain Control: Adequate, Prn Tx Ordered Nausea/Vomiting Control: Adequate, Prn Tx Ordered Complications Possibly Related to Anesthesia: None Noted
[2018-03-01] MEDS: fentaNYL 100 MCG/2 ML INJ IVP PRN ×2 (17:07→17:19)
[2018-03-01] MEDS ORDERED: DIAZEPAM 5 MG/ML 1 ML SYR ONE (17:30)
--- NOTE | 2018-03-01 18:01 | GOP ---
[f rep st] OPERATIVE REPORT DATE OF OPERATION: 03/01/2018 SURGEON: Tamir Ho MD NEUROSURGEON: Tamir Ho MD HOME THEATRE TECHNICIAN: Shasta Mtz, Nurse Practitioner. PREOPERATIVE DIAGNOSIS: Spinal stenosis, adjacent segment disease L1-2, lumbar degenerative disk dis ease L1-2, left retrolisthesis L1-2, severe axial low back pain. POSTOPERATIVE DIAGNOSIS: Spinal stenosis, adjacent segment disease L1-2, lumbar degenerative disk di sease L1-2, left retrolisthesis L1-2, severe axial low back pain. PROCEDURE PERFORMED: Removal of posterior non-segmental instrumentation across a single interspace a t L2-3 (02961), new segmental instrumentation, L1, L2, L3 ([id number]), posterolateral and intervertebral arthrodesis L1-2 ([id number]), placement of biomechanical intervertebral device at L1-2, same incision bon e graft harvest, microscope, spinal stereotaxis. FINDINGS: ESTIMATED BLOOD LOSS: 200 cc. INDICATIONS: The patient is an elderly female who had a prior history of successful L2-S1 fusion by an outside surgeon with [employer]. She developed slowly progressive severe axial low b ack pain. MRI demonstrated severe stenosis at L1-2 and retrolisthesis at L1-2 above her prior surger y. There is terrible disk degenerative disease at that level, and she ultimately progressed to the n eed for surgery. She knew there was risk of ongoing symptoms, nerve injury, spinal fluid leak. She had fluid on her MRI at the level of the L3 screws, which could represent a spinal fluid leak from he r prior surgery, and she knew this was a risk once again. She knew the risk of continued symptoms an d the possibility that surgery would fail to eliminate her discomfort. She knew there were risk of p seudoarthrosis and further adjacent segment disease at another spinal level. She knew that spinal re vision surgery may become necessary. She wanted to proceed despite the risks. DESCRIPTION OF PROCEDURE: Patient was taken to the operating room, placed in supine position. Gener al anesthesia was begun. She was flipped prone onto the Crispin table. Care was taken to pad all po ints of contact. Her back was sterilely prepped and draped in the usual fashion. A localizing x-ray was taken. We made a midline incision using the prior surgeon's incision and we only had extended about a centim eter rostrally and we curved the rostral portion of the incision over toward the midline. The subcut aneous tissue was dissected using the plasma blade. We did use the Bovie cautery until the prior ashia dware was removed. We used the plasma blade for the dissection down to the prior hardware and we exp osed the prior hardware at L2 and L3. We exposed the transverse process at L1. We removed the cap s crews at L2, and then, we cut the hunter at the L2 Tulip, and then removed both of the L2 screws and par t of the hunter between L2 and L3. We then worked around the prior rods to make room for connector and in-line connector. We then placed a Stealth reference frame and using frameless Stealth stereotaxy, we placed pedicle screws bilaterally at L1. We used 5.5 mm screws. The pedicles were extremely smal l and we were able to successfully cannulate the pedicles, placed the screws, and then, an O-arm spin was made, and the hardware was in perfect position. It stimulated at great levels. We then took an in-line connector connected to the old rods, took a 50 mm hunter, cut it down to about 4 5 mm and placed this into the connector and extended it through the new Tulip. We then distracted be tween L1 and L3, and then placed cap screws in the connector at L2-3, and then placed cap screws in t he Tulip at L1. We final tightened this according to company specification. We then denuded the hyp ertrophic facets bilaterally at L1-2. We decorticated the right-hand side at L1-2 for posterolateral arthrodesis. We then harvested the L2 spinous process for autologous grafting purposes and the L1 s pinous process for autologous grafting purposes. We drilled bilateral lateral laminectomies at L1-2. Under the microscope, we decompressed the thecal sac bilaterally at L1-2 and then completely remove d the left L1-2 facet joint. The exiting L1 nerve root was identified. We then cauterized the epidu ral veins in the lateral recess. There was significant foraminal stenosis present due to olga osteophyte formation coming off the L1 vertebral body. We incised the L1-2 disk, removed the disk and the cartilaginous endplates. We roug hened the subchondral bone to create arthrodesis. We then placed bone autograft and BMP into the dis k space. We use 1 mg in the disk space and 1 mg posterolaterally. We placed an expandable 7 x 23 mm Elevate cage made by [employer] into the disk space and expanded under fluoroscopic guidance. We the n decorticated all remaining posterolateral bone bilaterally, placed BMP posterolaterally bilaterally , followed by bone autograft. We then placed a subfascial drain. We did encounter during our exposure, the large epidural fluid collection adjacent to the L3 screws o n the patient's left-hand side and while there was clear fluid present in this. It has slight yellow pedraza. It did not appear infected. It was not perfectly clear, but had a xanthochromic appearance. We saw no additional leakage. There was no evidence of CSF leaking at that time. We irrigated with large amounts of antibiotic saline, closed the incision in multiple layers using Vi cryl sutures, and a subfascial drain had been placed. Steri-Strips were applied the skin. The patie nt was reversed from anesthesia, extubated, and transferred to recovery room in stable condition. Th ere were no complications. COMPLICATIONS: None. /[id number]/MODL
[2018-03-01] MEDS: GABAPENTIN 300 MG CAP PO SCH ×2 (18:03→21:43)
[2018-03-01] MEDS: ACETAMINOPHEN 500 MG TAB PO SCH ×2 (18:03→21:43)
[2018-03-01] MEDS: LIPASE 24,000/AMYLASE/PROTEASE (CREON) 1 CAP PO SCH (18:44)
[2018-03-01] MEDS: HYDROmorphONE/DILAUDID 1 MG/ML INJ IVP PRN ×2 (18:53→21:43)
[2018-03-01] MEDS: buPROPion 75 MG TAB PO SCH (20:52)
[2018-03-01] MEDS: FLUoxetine 20 MG CAP PO SCH (20:53)
[2018-03-01] MEDS: SENNOSIDES/DOCUSATE SODIUM TAB PO SCH (20:53)
[2018-03-01] MEDS: FAMOTIDINE 20 MG TAB PO SCH (20:53)
[2018-03-01] MEDS: oxyCODONE IR 5 MG TAB PO PRN (20:54)
[2018-03-01] MEDS: ceFAZolin 2 GM/DEXTROSE 100 ML IV SCH (21:11)
[2018-03-01] MEDS: METHOCARBAMOL 750 MG TAB PO PRN (21:43)
[2018-03-02] MEDS: HYDROmorphONE/DILAUDID 1 MG/ML INJ IVP PRN ×2 (01:09→08:49)
[2018-03-02] MEDS: ALPRAZolam 0.25 MG TAB PO PRN ×2 (01:19→21:01)
[2018-03-02 05:04] LABS: PLATELET COUNT 157 10^3/uL (150-400)
[2018-03-02] MEDS: ceFAZolin 2 GM/DEXTROSE 100 ML IV SCH (06:16)
[2018-03-02] MEDS: ACETAMINOPHEN 500 MG TAB PO SCH ×3 (06:17→21:01)
[2018-03-02] MEDS: LEVOTHYROXINE 125 MCG TAB PO SCH (06:18)
[2018-03-02] MEDS: GABAPENTIN 300 MG CAP PO SCH ×3 (06:18→21:01)
[2018-03-02] MEDS: oxyCODONE IR 5 MG TAB PO PRN ×4 (06:33→21:01)
--- NOTE | 2018-03-02 06:54 | NEUSURGPN ---
Date of Surgery: 03/01/18 Post Op Day: 1 Assessment/Plan: Assessment: 72 yr old F s/p L1-2 TLIF with tie into existing hardware L2-S1 POD #1 Plan: -pt with some expected lower back pain, legs feel fine and she has her baseline numbness in the feet -PT/OT pending -brace fit already to wear when out of bed -SKY-will likely pull later today -pain management, CONGRESSIONAL AIDE ordered if needed -post op xrays pending today -case management consulted-patient requesting [facility] -SKY to suction -Please call neurosurgery with any questions/concerns -pt understands and agrees Subjective: Awake and alert. NAD. Eating/drinking and voiding. No f/c/n/v/d. No jones/neck/ chest/abd or gu complaints. Objective: AAO x 3, PERRLA/EOMI no droop CN 2-12 grossly intact ESCALONA x4 5/5 BUE/BLE = Sensation intact to light touch Dressing CDI SKY patent Neuro Check Frequency: per routine Urinary Catheter in Place: No - Physician Discussed Patient with .: Vic Patient Seen by : Vic Neurosurgery Physical Exam - Vitals, I&O, Labs I and O 03/01/18 03/02/18 03/03/18 05:59 05:59 05:59 Intake Total 3720 Output Total 535 Balance 3185 Weight 56.699 kg Intake: IV Intake (ml) 3720 Output: Urine (ml) 250 Catheter 250 Estimated Blood Loss (ml) 200 SKY Drain Output (ml) 85 #1 Posterior Back Crispin 85 Mccray Vital Signs Temp Pulse Resp BP Pulse Ox 37.0 C 69 16 145/90 H 99 03/02/18 04:00 03/02/18 04:00 03/02/18 04:00 03/02/18 04:00 03/02/18 04:00 Laboratory Results 03/02/18 04:14 03/02/18 04:14 ICD10 Worksheet Patient Problems: Problems Problem Status Onset Anxiety Acute Hypertension Acute Hypotension arterial Acute
--- NOTE | 2018-03-02 08:37 | ASMTLACE ---
PRETTY Acuity / Level of Answers: Yes Care: Did the patient have an inpatient admission? Comorbidities - select Answers: Cerebrovascular disease all that apply (CVA, TIA, aneurysms, vasc ular dementia) Opioid dependence / Chronic pain Other Notes: HTN # of Emergency department Answers: 0 visits in the last 6 months Social determinants Answers: Mental health diagnosis (anxiety, depression, pers onality disorders, etc.) Score: 12 Date Signed: 03/02/2018 08:37 AM Electronically Signed By:Kiki Bone
[2018-03-02] MEDS: PANTOPRAZOLE SODIUM 40 MG TAB PO SCH (08:45)
[2018-03-02] MEDS: buPROPion 75 MG TAB PO SCH ×2 (08:46→21:01)
[2018-03-02] MEDS: SENNOSIDES/DOCUSATE SODIUM TAB PO SCH ×2 (08:46→21:01)
[2018-03-02] MEDS: FLUoxetine 20 MG CAP PO SCH ×2 (08:46→21:01)
[2018-03-02] MEDS: FAMOTIDINE 20 MG TAB PO SCH ×2 (08:47→21:01)
[2018-03-02] MEDS: LIPASE 24,000/AMYLASE/PROTEASE (CREON) 1 CAP PO SCH ×3 (08:47→17:20)
[2018-03-02] MEDS: METHOCARBAMOL 750 MG TAB PO PRN ×2 (08:47→17:20)
--- NOTE | 2018-03-02 14:54 | ASMTCMCOM ---
CM Note CM Note Notes: Met with patient to discuss discharge plan of care. PT/OT recommending SNF at this time. Patient is in agreement with SNF and would like to go to [facility] in [place]. Referral has been sent to [facility] via [employer]. Will not complete PASRR as not required for [facility]. CM will continue to follow. Current Plan: [facility] pending acceptance. Date Signed: 03/02/2018 02:53 PM Electronically Signed By:Gabrielle Crews RN
[2018-03-03] MEDS: oxyCODONE IR 5 MG TAB PO PRN ×6 (01:59→23:16)
[2018-03-03] MEDS: METHOCARBAMOL 750 MG TAB PO PRN ×2 (06:04→13:21)
[2018-03-03] MEDS: LEVOTHYROXINE 125 MCG TAB PO SCH (06:04)
[2018-03-03] MEDS: ACETAMINOPHEN 500 MG TAB PO SCH ×3 (06:04→20:59)
[2018-03-03] MEDS: GABAPENTIN 300 MG CAP PO SCH ×3 (06:04→20:58)
[2018-03-03] MEDS: buPROPion 75 MG TAB PO SCH ×2 (07:24→20:02)
[2018-03-03] MEDS: PANTOPRAZOLE SODIUM 40 MG TAB PO SCH (07:25)
[2018-03-03] MEDS: LIPASE 24,000/AMYLASE/PROTEASE (CREON) 1 CAP PO SCH ×3 (07:26→18:21)
[2018-03-03] MEDS: FAMOTIDINE 20 MG TAB PO SCH ×2 (07:26→20:02)
[2018-03-03] MEDS: FLUoxetine 20 MG CAP PO SCH ×2 (07:26→20:02)
[2018-03-03] MEDS: SENNOSIDES/DOCUSATE SODIUM TAB PO SCH ×2 (07:27→20:02)
[2018-03-03] MEDS: POLYETHYLENE GLYCOL 3350 17 GM PKT PO PRN (07:28)
--- NOTE | 2018-03-03 07:39 | NEUSURGPN ---
Date of Surgery: 03/01/18 Post Op Day: 2 Assessment/Plan: Assessment: 72 yr old F s/p L1-2 TLIF with tie into existing hardware L2-S1 POD #2 Plan: -pt with some expected lower back pain, legs feel fine and she has her baseline numbness in the feet -PT/OT pending -brace fit already to wear when out of bed -SKY-removed -CDI-dressing changed -pain management, GREENKEEPER ordered if needed -post op xrays look good, no complications or loosening -case management consulted-patient requesting [facility] -Please call neurosurgery with any questions/concerns -pt understands and agrees Subjective: Awake and alert. NAD. Eating/drinking and voiding. No f/c/n/v/d. No other complaints or concerns. Objective: AAO x 3, PERRLA/EOMI no droop CN 2-12 grossly intact ESCALONA x4 5/5 BUE/BLE = Sensation intact to light touch Dressing CDI SKY site looks good Neuro Check Frequency: per routine Urinary Catheter in Place: No - Physician Discussed Patient with Dr.: Vic Patient Seen by .: Vic Neurosurgery Physical Exam - Vitals, I&O, Labs I and O 03/02/18 03/03/18 03/04/18 05:59 05:59 05:59 Intake Total 4220 850 Output Total 1355 1665 Balance 2865 -815 Weight 56.699 kg Intake: Oral (ml) 500 850 IV Intake (ml) 3720 Output: Urine (ml) 1050 1625 Catheter 1050 Toilet 1625 Estimated Blood Loss (ml) 200 SKY Drain Output (ml) 105 40 #1 Posterior Back Crispin 105 40 Mccray Other: Number of Voids Toilet 1 Vital Signs Temp Pulse Resp BP Pulse Ox 36.8 C 73 18 137/77 H 94 03/03/18 00:00 03/03/18 00:00 03/03/18 00:00 03/03/18 00:00 03/03/18 00:00 Laboratory Results 03/02/18 04:14 03/02/18 04:14 ICD10 Worksheet Patient Problems: Problems Problem Status Onset Anxiety Acute Hypertension Acute Hypotension arterial Acute
[2018-03-03] MEDS: HYDROmorphONE/DILAUDID 1 MG/ML INJ IVP PRN ×3 (07:47→16:03)
[2018-03-03] MEDS: ALPRAZolam 0.25 MG TAB PO PRN (20:58)
[2018-03-04] MEDS: GABAPENTIN 300 MG CAP PO SCH ×2 (05:51→13:20)
[2018-03-04] MEDS: LEVOTHYROXINE 125 MCG TAB PO SCH (05:51)
[2018-03-04] MEDS: oxyCODONE IR 5 MG TAB PO PRN ×2 (05:51→11:01)
[2018-03-04] MEDS: ACETAMINOPHEN 500 MG TAB PO SCH (05:51)
[2018-03-04 07:47] VITALS: BP 142/88
[2018-03-04] MEDS: buPROPion 75 MG TAB PO SCH (08:30)
[2018-03-04] MEDS: FAMOTIDINE 20 MG TAB PO SCH (08:30)
[2018-03-04] MEDS: LIPASE 24,000/AMYLASE/PROTEASE (CREON) 1 CAP PO SCH ×2 (08:32→13:20)
[2018-03-04] MEDS: PANTOPRAZOLE SODIUM 40 MG TAB PO SCH (08:32)
[2018-03-04] MEDS: FLUoxetine 20 MG CAP PO SCH (08:32)
[2018-03-04] MEDS: SENNOSIDES/DOCUSATE SODIUM TAB PO SCH (08:33)
[2018-03-04] MEDS: POLYETHYLENE GLYCOL 3350 17 GM PKT PO PRN (08:38)
[2018-03-04] MEDS ORDERED: ENOXAPARIN 40 MG/0.4 ML SYR SC SCH (09:00)
--- NOTE | 2018-03-04 10:07 | NEUSURGPN ---
Assessment/Plan: Assessment: 72 yr old F s/p L1-2 TLIF with tie into existing hardware L2-S1 Plan: -Pain management, leg pain improved today. Some continued lower back pain at incision site. -Ok to use ice at incision site -Removed dressing, ok to leave off. Leave steri strips in place -Ok to shower -PT/OT -Case management consulted-patient requesting [facility] -Ok to dc to rehab today -post op xrays stable hardware placement -Please call neurosurgery with any questions/concerns Subjective: Leg pain improved, expected incisional pain Objective: AxO x3 5/5 BLE Sensation intact to light touch BLE Incision CDI with steri strips Neuro Check Frequency: per routine Urinary Catheter in Place: No - Physician Discussed Patient with : Vic Patient Seen by : Vic Neurosurgery Physical Exam - Vitals, I&O, Labs I and O 03/03/18 03/04/18 03/05/18 05:59 05:59 05:59 Intake Total 850 950 Output Total 1665 1900 200 Balance -815 -950 -200 Intake: Oral (ml) 850 950 Output: Urine (ml) 1625 1900 200 Toilet 1625 1900 200 SKY Drain Output (ml) 40 #1 Posterior Back Crispin 40 Mccray Other: Intake Quantity Yes Sufficient Number of Voids Toilet 1 1 1 Vital Signs Temp Pulse Resp BP Pulse Ox 36.9 C 69 15 142/88 H 95 03/04/18 07:46 03/04/18 07:46 03/04/18 07:46 03/04/18 07:46 03/04/18 07:46 Laboratory Results 03/02/18 04:14 03/02/18 04:14 ICD10 Worksheet Patient Problems: Problems Problem Status Onset Anxiety Acute Hypertension Acute Hypotension arterial Acute
--- NOTE | 2018-03-04 10:14 | PDIAF ---
- Diagnosis Code Status: Full Code - Medication Management Discharge Medications: Medications to Continue on Transfer Cyanocobalamin [Vitamin B12 (*)] 2,500 mcg PO DAILY 11/14/16 [Last Taken 08:00] FLUoxetine [Prozac 20 MG (*)] 40 mg PO BID 11/14/16 [Last Taken 02/28/18 22:00] Levothyroxine [Synthroid 112 mcg (*)] 112 mcg PO SUMOFRSA@11/14/16 [Last Taken 02/28/18 08:00] Levothyroxine [Synthroid 125 mcg (*)] 125 mg PO TUWETH@11/14/16 [Last Taken 02/25/18] Pantoprazole Sodium [Protonix 40mg (*)] 40 mg PO DAILY 10/07/17 [Last Taken 04/10 08:00] buPROPion [Wellbutrin 75mg (*)] 300 mg PO DAILY 10/07/17 [Last Taken 02/28/18 08 :00] traZODone [traZODONE 100MG (*)] 200 mg PO HS 10/07/17 [Last Taken 02/28/18 22:00 ] Ondansetron HCl [Zofran] 4 mg PO DAILY PRN 12/04/17 [Last Taken 02/22/18] Acetaminophen [Tylenol 325mg (*)] 325 mg PO DAILY PRN 02/08/18 [Last Taken 02/27] Cholecalciferol Vit D3 [Vitamin D3 2000 units tab (OTC)] 2,000 units PO DAILY [Last Taken 02/28/18 08:00] Lipase 24,000/Amylase/Protease [Creon 24 (*)] 2 cap PO TIDMEAL 02/08/18 [Last Taken 02/28/18 17:00] buPROPion [Wellbutrin 75mg (*)] 150 mg PO HS 02/08/18 [Last Taken 02/28/18 22:00 ] Gabapentin [Neurontin 300 MG (*)] 300 mg PO Q8HRS #90 cap 03/04/18 [Last Taken Unknown] Methocarbamol [Robaxin 750 mg (*)] 750 mg PO QID PRN #60 tab 03/04/18 [Last Taken Unknown] oxyCODONE IR [Oxycodone Ir (*)] 5 - 10 mg PO Q4HRS PRN #60 tab 03/04/18 [Last Taken Unknown] Discharge Medications: Refer to the Discharge Home Medication list for PRN reason. PICC Care - Routine: N/A - Orders Services needed: Physical Therapy, Occupational Therapy Isolation Type: None Diet Recommendation: no restrictions on diet Aram Stockings Discontinue Date: May remove once ambulating 100-200 yrds 3-4 times/day Sutures/Edwards Site: Leave steri strips in place. No dressing over steri strips Activity/Weight Bearing Restrictions: No bending or twisting. Do not lift greater than 10 pounds. Wear brace when out of bed. Ok to not wear brace in shower. Ok to shower-do not submerge incision in tub/pool Additional Instructions: No bending or twisting Do not lift greater than 10 pounds Wear brace when out of bed Ok to shower Leave steri strips in place Do not submerge incision - Follow Up Care Current Providers and Referrals: Unknown,Unknown [Primary Care Provider] - Arianna Ho MD [Medical Doctor] - follow up in 2 weeks
--- NOTE | 2018-03-04 12:57 | ASMTCMCOM ---
CM Note CM Note Notes: Pt medically stable for d/c to [facility]. Orders sent in [employer]. Maxine with [facility] scheduled wc transport. RN Mis to call report. left for pt [place] Medicaid worker per pt request. Date Signed: 03/04/2018 12:56 PM Electronically Signed By:NYDIA Pinedo
--- NOTE | 2018-03-04 14:47 | ASDISCHSUM ---
Discharge Information Plan Status:SNF Medically Cleared to Leave: Discharge Date:03/04/2018 01:34 PM D/C Disposition:[facility] ADT D/C Disposition:Other Rehab, Not [place] Projected Discharge Date:03/04/2018 11:00 AM Transportation at D/C:Wheelchair Van Discharge Delay Reason: Follow-Up Date:03/04/2018 11:00 AM Discharge Slot: Final Diagnosis: Placement Information Referral Type:*[facility]/SNF Referral ID:[id number]-[id number] Provider Name:Candace Bergeron Address 1:[address] Phone Number: Address 2: Fax Number: City:[place] Selection Factors: State:[place] Patient Contact Information Contact Name:NENITA Relationship:Son Address:[address] Work Phone: City:[place] Alternate Phone: State/[facility] Code:[place] [address] Email: Financial Information Financial Class:Medicare Primary Plan Desc:MEDICARE INPATIENT Primary Plan Number:[id number] Secondary Plan Desc:MED[place] Secondary Plan Number:[id number] Assessment Information LACE LACE Acuity / Level of Answers: Yes Care: Did the patient have an inpatient admission? Comorbidities - select Answers: Cerebrovascular disease all that apply (CVA, TIA, aneurysms, vasc ular dementia) Opioid dependence / Chronic pain Other Notes: HTN # of Emergency department Answers: 0 visits in the last 6 months Social determinants Answers: Mental health diagnosis (anxiety, depression, pers onality disorders, etc.) Score: 12 Date Signed: 03/02/2018 08:37 AM Electronically Signed By:Kiki oBne [facility] CM Progress Note CM Note CM Note Notes: Met with patient to discuss discharge plan of care. PT/OT recommending SNF at this time. Patient is in agreement with SNF [facility] [place]. [facility] [employer]. Will not complete PASRR as not required for [facility]. CM will continue to follow. Current Plan: [facility] pending acceptance. Date Signed: 03/02/2018 02:53 PM Electronically Signed By:Gabrielle Crews RN [facility] CM Progress Note CM Note CM Note Notes: Pt medically stable for d/c to [facility]. Orders sent in [employer]. Maxine with [facility] scheduled wc transport. NATHANIEL Abebe to call report. left for pt [place] Medicaid worker per pt request. Date Signed: 03/04/2018 12:56 PM Electronically Signed By:NYDIA Pinedo Intervention Information Intervention Type:*IM-Signed Date of Service:03/04/2018 11:07 AM Patient Type:Inpatient Staff Member:Kiki Bone Hours: Discipline: Severity: Comment:
[2018-03-05] MEDS ORDERED: LEVOTHYROXINE 112 MCG TAB PO SCH (06:00)
--- NOTE | 2018-03-15 17:29 | GDS ---
[f rep st] DISCHARGE SUMMARY PRIMARY DIAGNOSIS: Lumbar stenosis. OPERATIONS AND PROCEDURES: L1-2 transforaminal lumbar interbody fusion with tie in to existing hardware of L2 to S1. HOSPITAL COURSE: The patient underwent an L1-2 transforaminal lumbar interbody fusion with tie in to existing hardware of L2 to S1 with Dr. Tamir Ho on March 01, 2018. The patient tolerated the procedure well without complication, was admitted in the medical-surgical floor for observation. The patient was seen and evaluated by Physical and Occupational therapies, and her pain was well controlled with oral medications. The patient was discharged to [facility]. CONSULTS: Physical Therapy, Occupational Therapy. COMPLICATIONS: None. DISCHARGE CONDITION: Stable. DISCHARGE MEDICATIONS: See discharge medication list DISCHARGE INSTRUCTIONS: The patient is to avoid any bending or twisting at the waist. She is to avoid any lifting greater than 10 pounds. The patient is instructed to wear her brace anytime she is out of bed. It is okay for her to shower without her brace. The patient may remove her dressing on postop day 3. The patient will leave Steri-Strips in place. The patient will avoid any submersion of her incision for the next 2-3 weeks. The patient is scheduled to follow up in the office in 2 weeks for a postoperative visit. She is instructed to call us sooner with any questions or concerns. /[id number]/MODL MTDD
== END 2018-03-04 13:34 | DRG 455 ==
LOC: F3N 10:06
PROVIDERS: ADMIT Neurological Surgery; ATTEND Neurological Surgery
PROC: 0ST20ZZ Resection of Lumbar Vertebral Disc, Open Approach (ICD-10-PCS; principal; 2018-03-01 12:30)
PROC: 0SG0071 Fusion of Lumbar Vertebral Joint with Autologous Tissue Substitute, Posterior Approach, Posterior Column, Open Approach (ICD-10-PCS; principal; 2018-03-01 12:30)
PROC: 0SG00AJ Fusion of Lumbar Vertebral Joint with Interbody Fusion Device, Posterior Approach, Anterior Column, Open Approach (ICD-10-PCS; principal; 2018-03-01 12:30)
PROC: 0SP004Z Removal of Internal Fixation Device from Lumbar Vertebral Joint, Open Approach (ICD-10-PCS; principal; 2018-03-01 12:30)
PROC: 00NY0ZZ Release Lumbar Spinal Cord, Open Approach (ICD-10-PCS; principal; 2018-03-01 12:30)
DX: M48.061 Spinal stenosis, lumbar region without neurogenic claudication (principal); M51.36 Other intervertebral disc degeneration, lumbar region; I10 Essential (primary) hypertension; E89.0 Postprocedural hypothyroidism; Z98.1 Arthrodesis status; Z86.73 Personal history of transient ischemic attack (TIA), and cerebral infarction without residual deficits; Z85.850 Personal history of malignant neoplasm of thyroid; Z98.84 Bariatric surgery status
CPT/HCPCS: 97116-GP; 97161-GP; 97166-GO; 97530-GO; 97530-GP; 97535-GO; C1713; G8978-GP-CJ; G8979-GP-CI; G8987-GO-CK; G8988-GO-CI; J0171; J0690; J1100; J1170; J1650; J2250; J2370; J2405; J2704; J2780; J3010; J3360

== ENCOUNTER → 2018-05-06 | Outpatient (CLI) | payer OTHER, MEDICAID | LOC: FIMAGING 11:23 → EDSTATUS 11:25 | PROVIDERS: ATTEND Physician Assistant | DX: M54.12 Radiculopathy, cervical region (principal); M54.5 Low back pain; Z98.1 Arthrodesis status ==

== ENCOUNTER → 2018-06-02 | Outpatient (CLI) | payer OTHER, MEDICAID | LOC: FIMAGING 12:59 | PROVIDERS: ATTEND Internal Medicine Hematology & Oncology | DX: Z13.820 Encounter for screening for osteoporosis (principal); Z78.0 Asymptomatic menopausal state; Z85.850 Personal history of malignant neoplasm of thyroid; Z98.1 Arthrodesis status; Z96.641 Presence of right artificial hip joint; M81.0 Age-related osteoporosis without current pathological fracture ==

== ENCOUNTER → 2018-06-14 | Outpatient (CLI) | payer OTHER, MEDICAID | LOC: CIMAGING 13:55 | PROVIDERS: ATTEND Internal Medicine | DX: Z04.3 Encounter for examination and observation following other accident (principal); S62.616A Displaced fracture of proximal phalanx of right little finger, initial encounter for closed fracture; M19.012 Primary osteoarthritis, left shoulder | CPT/HCPCS: 73030-PO; 73130-PO ==

== ENCOUNTER → 2018-06-18 | Outpatient (CLI) | payer OTHER, MEDICAID | LOC: FIMAGING 12:21 → EDSTATUS 12:21 | PROVIDERS: ATTEND Nurse Practitioner | DX: Z98.1 Arthrodesis status (principal) ==

== ENCOUNTER → 2018-08-05 | Outpatient (CLI) | payer OTHER, MEDICAID | LOC: FIMAGING 09:49 | PROVIDERS: ATTEND Physician Assistant | DX: M43.16 Spondylolisthesis, lumbar region (principal); D33.2 Benign neoplasm of brain, unspecified; Z98.1 Arthrodesis status ==

== ENCOUNTER → 2018-09-08 | Outpatient (CLI) | payer OTHER, MEDICAID | LOC: CIMAGING 10:07 | PROVIDERS: ATTEND Physician Assistant | DX: Z09 Encounter for follow-up examination after completed treatment for conditions other than malignant neoplasm (principal); Z98.1 Arthrodesis status; M54.16 Radiculopathy, lumbar region; H61 Other disorders of external ear; D33.2 Benign neoplasm of brain, unspecified | CPT/HCPCS: 72080-PO ==

== ENCOUNTER → 2018-10-26 | Outpatient (CLI) | payer OTHER, MEDICAID | LOC: FIMAGING 11:11 | PROVIDERS: ATTEND Physician Assistant | DX: Z09 Encounter for follow-up examination after completed treatment for conditions other than malignant neoplasm (principal); Z98.1 Arthrodesis status ==

== ENCOUNTER 2018-11-01 13:13 | Outpatient (CLI) | payer OTHER, MEDICAID ==
[2018-11-01] MEDS ORDERED: PROPOFOL/EMULSION 500 MG/50 ML BOTTLE IV ONE (14:12)
[2018-11-01] MEDS ORDERED: PROPOFOL 200 MG/20 ML VIAL ONE (14:12)
[2018-11-01] MEDS ORDERED: SUCCINYLCHOLINE CHLORIDE 200 MG/10 ML VIAL ONE (14:17)
[2018-11-01] MEDS ORDERED: ROCURONIUM 100 MG/10 ML VIAL ONE (14:18)
--- NOTE | 2018-11-01 14:43 | PDANEPAE ---
ANE History of Present Illness MRI for suspected stroke, hx of meningioma ANE Past Medical History - Cardiovascular History Hx Hypertension: No Hx Arrhythmias: No Hx Chest Pain: No Hx Coronary Artery / Peripheral Vascular Disease: No Hx CHF / Valvular Disease: No Hx Palpitations: No Cardiovascular History Comment: currently off BP meds per PCP - Pulmonary History Hx COPD: No Hx Asthma/Reactive Airway Disease: No Hx Recent Upper Respiratory Infection: No Hx Oxygen in Use at Home: No Hx Sleep Apnea: No Sleep Apnea Screening Result - Last Documented: Negative Pulmonary History Comment: TIA. - Neurologic History Hx Cerebrovascular Accident: Yes Hx Seizures: No Hx Dementia: No Neurologic History Comment: tia X3. hx of vertigo. hx of back surgeries. meningioma removal 2011 - Endocrine History Hx Diabetes: No Hypothyroid: Yes Hyperthyroid: No Obesity: no Endocrine History Comment: thyroidectomy. hx of thyroid ca - Renal History Hx Renal Disorders: No Renal History Comment: incontinence at times - Liver History Hx Hepatic Disorders: No - Neurological & Psychiatric Hx Hx Neurological and Psychiatric Disorders: Yes Neurological / Psychiatric History Comment: anxiety. depression. claustrophobia. tremor - Cancer History Hx Cancer: Yes Cancer History Comment: thyroid - Congenital Disorder History Hx Congenital Disorders: Yes Congenital History Comment: heart disease - GI History GERD: mild Hx Gastrointestinal Disorders: Yes Gastrointestinal History Comment: gastric bypass ; bowel resection - Other Health History Other Health History: LT FOOT DROP. IMELDA LOWER EXT NUMBNESS. OSTEOPENIA. NEUTROPENIA. [facility] [place] - Chronic Pain History Chronic Pain: Yes (generalized) - Surgical History Prior Surgeries: BOWEL RESECTION 12/2015. RT TOTAL HIP. left knee replacement. 4 back surgeries- rods and screws. gastric bypass 2006. thyroidectomy. hysterectomy 1994. appy. clarke. meningioma ANE Review of Systems Review of systems is: negative Review of Systems: - Exercise capacity METS (RN): 3 METS ANE Patient History - Allergies Allergies/Adverse Reactions: morphine [Morphine] Allergy (Severe, Verified 10/29/18 12:07) Dyspnea ibuprofen [Ibuprofen] Allergy (Unknown, Verified 10/26/18 15:41) Other-Enter Comments atorvastatin Allergy (Verified 10/29/18 12:07) Other-Enter Comments olanzapine Allergy (Verified 10/29/18 12:07) Other-Enter Comments - Home Medications Home medications: home medication list seen and reviewed Home Medications: Cyanocobalamin [Vitamin B12 (*)] 11/14/16 [Last Taken 10/31/18] FLUoxetine [Prozac 20 MG (*)] 11/14/16 [Last Taken 11/01/18] Levothyroxine [Synthroid 112 mcg (*)] 11/14/16 [Last Taken 11/01/18] Levothyroxine [Synthroid 125 mcg (*)] 11/14/16 [Last Taken 11/01/18] Pantoprazole Sodium [Protonix 40mg (*)] 10/07/17 [Last Taken 11/01/18] buPROPion [Wellbutrin 75mg (*)] 10/07/17 [Last Taken 10/31/18] Ondansetron HCl [Zofran] 12/04/17 [Last Taken 10/31/18] Cholecalciferol Vit D3 [Vitamin D3 2000 units tab (OTC)] 02/08/18 [Last Taken 10/31/18] Lipase 24,000/Amylase/Protease [Creon 24 (*)] 02/08/18 [Last Taken 10/31/18] buPROPion [Wellbutrin 75mg (*)] 02/08/18 [Last Taken 10/31/18] Acetaminophen [Tylenol ES 500 mg (*)] 10/26/18 [Last Taken 11/01/18] Buprenorphine 10/26/18 [Last Taken 10/31/18] Gabapentin [Neurontin 300 MG (*)] 10/29/18 [Last Taken 11/01/18] Polyethylene Glycol 3350 [Miralax 17 gm (*)] 10/29/18 [Last Taken 11/01/18] Sennosides/Docusate Sodium [Senokot-S] 10/29/18 [Last Taken 10/04/18] Topamax 50 mg PO BID 11/01/18 [Last Taken 11/01/18] - NPO status NPO Status: no food or drink >8 hours - Anes Hx Anes Hx: no prior problems - Smoking Hx Smoking Status: Never smoked Marijuana use: No - Alcohol Use Alcohol Use: None - Family Anes Hx Family Anes Hx: none Family Hx Anesthesia Complications: none ANE Labs/Vital Signs - Vital Signs Blood Pressure: 147/76 Heart Rate: 52 Respiratory Rate: 16 O2 Sat (%): 98 Height: 170.18 cm Weight: 61.689 kg ANE Physical Exam - Airway Neck exam: FROM Mallampati Score: Class 2 Mouth exam: normal dental/mouth exam - Pulmonary Pulmonary: no respiratory distress, clear to auscultation - Cardiovascular Cardiovascular: regular rate and rhythym, no murmur, rub, or gallop - ASA Status ASA Status: III ANE Anesthesia Plan Anesthesia Plan: GA w LMA
[2018-11-01] MEDS ORDERED: GADOBUTROL 10 ML VIAL IVP ONE (15:11)
[2018-11-01] MEDS ORDERED: fentaNYL 100 MCG/2 ML INJ ONE ×2 (15:13→16:50)
[2018-11-01] MEDS ORDERED: NALOXONE HCL 0.4 MG/ML INJ IVP PRN (16:11)
[2018-11-01] MEDS ORDERED: fentaNYL 100 MCG/2 ML INJ IVP ONE (16:48)
[2018-11-01 18:04] VITALS: BP 139/80
== END 2018-11-01 17:40 | disposition home or self-care (01) ==
LOC: FIMAGING 13:13
PROVIDERS: ATTEND Psychiatry & Neurology Neurology
DX: I63.9 Cerebral infarction, unspecified (principal); R53.1 Weakness; I10 Essential (primary) hypertension
CPT/HCPCS: 70553; A9585; J0330; J2704; J3010

== ENCOUNTER 2018-11-08 09:30 | Inpatient (IN) | payer OTHER, MEDICAID ==
--- NOTE | 2018-11-07 11:45 | GHP ---
[f rep st] PREOP HISTORY AND PHYSICAL DATE OF ADMISSION: 11/08/2018 ADMISSION DIAGNOSIS: Osteoarthritis, left shoulder. PLANNED PROCEDURE: Left reverse total shoulder arthroplasty. HISTORY OF PRESENT ILLNESS: Kathya is a 73-year-old female with longstanding bilateral worsening kevin ulder pain with rotator cuff tears. We have been trying to manage this with cortisone injections, ph ysical therapy, and activity modification. However, the pain has now become so debilitating for her she really does not have any use of the left arm. She is currently on pain management. The decision has been made to proceed with a reverse shoulder arthroplasty on the left. PRIOR MEDICAL HISTORY: Reflux, depression, thyroid cancer, hypothyroidism, osteoporosis. SURGICAL HISTORY: Knee replacement, right hip replacement, multiple lumbar surgeries. She had a bow el obstruction postoperatively following her right total hip arthroplasty in 2018. MEDICATIONS: Bupropion 150 mg extended release, Celebrex 200 mg twice daily, diazepam 5 mg, diclofen ac 75 mg, fluoxetine 40 mg, gabapentin 300 mg, hydrocodone 10 mg, levothyroxine 125 mcg, lisinopril 2 .5 mg, Ativan 1 mg. ALLERGIES: Atorvastatin, ibuprofen, morphine, olanzapine, and aspirin. SOCIAL HISTORY: She is retired. Lives here in town. Does not smoke. Does not drink alcohol. REVIEW OF SYSTEMS: No shortness of breath or chest pain. Otherwise, review of systems is unremarkab le. PHYSICAL EXAMINATION: VITAL SIGNS: She is 5 feet 7 inches tall, weighs 125 pounds. Blood pressure is 115/67, heart rate is 58, oxygen saturation is 97% on room air. GENERAL: Alert and oriented x3. HEENT: Normocephalic, atraumatic. Extraocular muscles are intact. NECK: Supple. There is no lym phadenopathy. No JVD. CHEST: Clear to auscultation. CARDIOVASCULAR: Regular rate and rhythm. AB DOMEN: Soft, nontender, nondistended. EXTREMITIES: Focusing on the left shoulder, she has atrophy in both the supraspinatus and infraspinatus fossa, with tenderness both anterior and posterior joint line. Active range of motion is limited to about 60 degrees of forward flexion, 30 of abduction. Deepti almazan has 35 degrees of active external rotation past the anchor to 40. Internal rotation, she is 45 deg siddharth. Rotator cuff strength is 1/5 for supraspinatus and infraspinatus. Subscapularis 4/5. IMAGING: X-rays, 3 views of the shoulder, show severe osteoarthritis with a high-riding humeral head on the left shoulder. ASSESSMENT: Severe osteoarthritis with complete rotator cuff tear, left shoulder. PLAN: I recommend proceeding with a total shoulder arthroplasty, reverse, on the left. Risks and benefits including limited external rotation for the first 6 weeks, possibility of infectio n, were all discussed. She understands these risks and wishes to proceed. We will plan on surgery on at [facility]. /[id number]/MODL
[2018-11-08] MEDS ORDERED: BUPIVACAINE/EPI 0.5% 30 ML SDV ONE (10:47)
[2018-11-08] MEDS ORDERED: POLYMYXIN B SULFATE 500,000 UNIT/10 ML SYR IRR ONE (10:48)
[2018-11-08] MEDS ORDERED: BACITRACIN 50,000 UNITS/10 ML SYR IRR ONE (10:48)
[2018-11-08] MEDS ORDERED: LR 1,000 ML IV ONE (10:54)
[2018-11-08] MEDS ORDERED: ceFAZolin 2 GM/DEXTROSE 100 ML IV ONE (10:54)
--- NOTE | 2018-11-08 11:59 | PDANEPAE ---
ANE Past Medical History - Cardiovascular History Hx Hypertension: No Hx Arrhythmias: No Hx Chest Pain: No Hx Coronary Artery / Peripheral Vascular Disease: No Hx CHF / Valvular Disease: No Hx Palpitations: No Cardiovascular History Comment: currently off BP meds per PCP - Pulmonary History Hx COPD: No Hx Asthma/Reactive Airway Disease: No Hx Recent Upper Respiratory Infection: No Hx Oxygen in Use at Home: No Hx Sleep Apnea: No Sleep Apnea Screening Result - Last Documented: Negative Pulmonary History Comment: TIA. - Neurologic History Hx Cerebrovascular Accident: Yes Hx Seizures: No Hx Dementia: No Neurologic History Comment: tia X3. hx of vertigo. hx of back surgeries. meningioma removal 2011 - Endocrine History Hx Diabetes: No Hypothyroid: Yes Hyperthyroid: No Obesity: no Endocrine History Comment: thyroidectomy. hx of thyroid ca - Renal History Hx Renal Disorders: No Renal History Comment: incontinence at times - Liver History Hx Hepatic Disorders: No - Neurological & Psychiatric Hx Hx Neurological and Psychiatric Disorders: Yes Neurological / Psychiatric History Comment: anxiety. depression. claustrophobia. tremor - Cancer History Hx Cancer: Yes Cancer History Comment: thyroid - Congenital Disorder History Hx Congenital Disorders: Yes Congenital History Comment: heart disease - GI History GERD: moderate Hx Gastrointestinal Disorders: Yes Gastrointestinal History Comment: gastric bypass ; bowel resection - Other Health History Other Health History: LT FOOT DROP. IMELDA LOWER EXT NUMBNESS. OSTEOPENIA. NEUTROPENIA. HOONAH - Chronic Pain History Chronic Pain: Yes (generalized) - Surgical History Prior Surgeries: BOWEL RESECTION 12/2015. RT TOTAL HIP. left knee replacement. 4 back surgeries- rods and screws. gastric bypass 2006. thyroidectomy. hysterectomy 1994. appy. clarke. meningioma ANE Review of Systems Review of Systems: - Exercise capacity Exercise capacity: >=4 METS, limited by disability METS (RN): 4 METS ANE Patient History - Allergies Allergies/Adverse Reactions: morphine [Morphine] Allergy (Severe, Verified 10/29/18 12:07) Dyspnea ibuprofen [Ibuprofen] Allergy (Unknown, Verified 10/26/18 15:41) Other-Enter Comments atorvastatin Allergy (Verified 10/29/18 12:07) Other-Enter Comments olanzapine Allergy (Verified 10/29/18 12:07) Other-Enter Comments - Home Medications Home Medications: Cyanocobalamin [Vitamin B12 (*)] 11/14/16 [Last Taken 11/07/18] FLUoxetine [Prozac 20 MG (*)] 11/14/16 [Last Taken 11/08/18] Levothyroxine [Synthroid 112 mcg (*)] 11/14/16 [Last Taken 11/01/18] Levothyroxine [Synthroid 125 mcg (*)] 11/14/16 [Last Taken 11/08/18] Pantoprazole Sodium [Protonix 40mg (*)] 10/07/17 [Last Taken 11/08/18] buPROPion [Wellbutrin 75mg (*)] 10/07/17 [Last Taken 11/07/18] Ondansetron HCl [Zofran] 12/04/17 [Last Taken 11/07/18] Cholecalciferol Vit D3 [Vitamin D3 2000 units tab (OTC)] 02/08/18 [Last Taken 11/07/18] Lipase 24,000/Amylase/Protease [Creon 24 (*)] 02/08/18 [Last Taken 11/07/18] buPROPion [Wellbutrin 75mg (*)] 02/08/18 [Last Taken 11/08/18] Acetaminophen [Tylenol ES 500 mg (*)] 10/26/18 [Last Taken 11/07/18] Buprenorphine 10/26/18 [Last Taken 11/07/18] Gabapentin [Neurontin 300 MG (*)] 10/29/18 [Last Taken 11/08/18] Polyethylene Glycol 3350 [Miralax 17 gm (*)] 10/29/18 [Last Taken 11/01/18] Sennosides/Docusate Sodium [Senokot-S] 10/29/18 [Last Taken 10/04/18] Topamax 50 mg PO BID 11/01/18 [Last Taken 11/08/18] - NPO status NPO Since - Liquids (Date): 11/08/18 NPO Since - Liquids (Time): 06:30 NPO Since - Solids (Date): 11/07/18 NPO Since - Solids (Time): 20:00 - Anes Hx Anes Hx: no prior problems - Smoking Hx Smoking Status: Never smoked - Alcohol Use Alcohol Use: Occasionally - Family Anes Hx Family Anes Hx: neg - N/A Family Hx Anesthesia Complications: none ANE Labs/Vital Signs - Vital Signs Blood Pressure: 167/85 Heart Rate: 46 Respiratory Rate: 18 O2 Sat (%): 98 Height: 170.18 cm Weight: 60.328 kg ANE Physical Exam - Airway Neck exam: FROM Mallampati Score: Class 3 Mouth exam: normal dental/mouth exam - Pulmonary Pulmonary: no respiratory distress, no rales or rhonchi, clear to auscultation - Cardiovascular Cardiovascular: regular rate and rhythym, no murmur, rub, or gallop - ASA Status ASA Status: III ANE Anesthesia Plan Anesthesia Plan: general endotracheal anesthesia Regional Anesthesia: single shot NB, supraclavicular BP NB Total IV Anesthesia: No
[2018-11-08] MEDS ORDERED: MIDAZOLAM 2 MG/2 ML VIAL IVP ONE (12:00)
[2018-11-08] MEDS ORDERED: PROPOFOL 200 MG/20 ML VIAL ONE (12:06)
[2018-11-08] MEDS ORDERED: fentaNYL 100 MCG/2 ML INJ ONE (12:06)
[2018-11-08] MEDS ORDERED: ONDANSETRON 4 MG/2 ML VIAL ONE (12:08)
[2018-11-08] MEDS ORDERED: DEXAMETHASONE 4 MG/ML VIAL ONE (12:08)
[2018-11-08] MEDS ORDERED: ROCURONIUM 50 MG/5 ML VIAL ONE (12:08)
[2018-11-08] MEDS ORDERED: LIDOCAINE 2% 5 ML SDV ONE (12:10)
[2018-11-08] MEDS ORDERED: ROPIVACAINE HCL 150 MG/30 ML INJ ONE (12:13)
[2018-11-08] MEDS ORDERED: HYDROCODONE/APAP 5/325 TAB PO PRN (13:01)
[2018-11-08] MEDS ORDERED: fentaNYL 100 MCG/2 ML INJ IVP PRN (13:01)
[2018-11-08] MEDS ORDERED: PROMETHAZINE HCL 25 MG/ML INJ IVP PRN (13:01)
[2018-11-08] MEDS ORDERED: oxyCODONE IR 5 MG TAB PO PRN (13:01)
[2018-11-08] MEDS ORDERED: NALOXONE HCL 0.4 MG/ML INJ IVP PRN (13:01)
[2018-11-08] MEDS ORDERED: PHENYLEPHRINE HCL 100 MCG/ML SYR IVP PRN (13:01)
[2018-11-08] MEDS ORDERED: LR 500 ML IV PRN (13:01)
[2018-11-08] MEDS ORDERED: ONDANSETRON 4 MG/2 ML VIAL IVP PRN ×2 (13:01→14:34)
[2018-11-08] MEDS ORDERED: ACETAMINOPHEN 500 MG TAB PO PRN (13:01)
[2018-11-08] MEDS ORDERED: ePHEDrine SULFATE 25 MG/5 ML SYR ONE (13:06)
[2018-11-08] MEDS ORDERED: NEOSTIGMINE METHYLSULFATE 5 MG/5 ML SYR ONE (14:12)
[2018-11-08] MEDS ORDERED: GLYCOPYRROLATE 0.2 MG/1 ML VIAL ONE ×2 (14:12)
[2018-11-08] MEDS ORDERED: TEMAZEPAM 15 MG CAP PO PRN (14:34)
--- NOTE | 2018-11-08 14:34 | POSTOPPROG ---
Post Op Note Date of Operation: 11/08/18 Surgeon: Nelson Yarbrough Ekg Manager: Africa Landrum Anesthesiologist: Becca Anesthesia: GET(General Endotracheal) Pre-op Diagnosis: OA LT shoulder Post-op Diagnosis: SAme Indication: OA with complete RC rupture Procedure: Reverse TSA Inf/Abcess present in the surg proc area at time of surgery?: No Complications: none Bowel Protocol: Yes
[2018-11-08] MEDS ORDERED: ENALAPRILAT DIHYDRATE 1.25 MG/ML VIAL IVP PRN (14:46)
--- NOTE | 2018-11-08 14:46 | POSTANESTH ---
Post Anesthetic Evaluation Cardiovascular Status: Similar to Pre-Op Cond Respiratory Status: Similar to Pre-op Cond. Level of Consciousness/Mental Status: Mildly Sleepy, Arousable Pain Control: Adequate, Prn Tx Ordered Nausea/Vomiting Control: Adequate, Prn Tx Ordered Complications Possibly Related to Anesthesia: None Noted
--- NOTE | 2018-11-08 16:04 | GOP ---
[f rep st] OPERATIVE REPORT DATE OF OPERATION: 11/08/2018 SURGEON: Nelson Yarbrough MD MANAGER RELIABILITY: Africa Landrum. ANESTHESIA: Interscalene block with general. ANESTHESIOLOGIST: Dr. Hudson. PREOPERATIVE DIAGNOSIS: Osteoarthritis of the left shoulder with rotator cuff tear. POSTOPERATIVE DIAGNOSIS: Osteoarthritis of the left shoulder with rotator cuff tear. PROCEDURE PERFORMED: Reverse total shoulder arthroplasty, left shoulder. FINDINGS: INDICATIONS: The patient is a 73-year-old female with longstanding bilateral shoulder pain; left is worse than right. She is now in chronic pain and on chronic pain management. Really does not have m uch functional use in the shoulder, and decision was made to proceed with a total reverse shoulder ar throplasty to see if we could get her some improved function and increased pain relief. DESCRIPTION OF PROCEDURE: After appropriate informed consent was obtained, patient taken to the oper ating room, placed supine on the operating table. Time-out was performed. Patient was identified. Correct site was identified, matched with radiographs in the room. She received 2 g of Ancef preoper atively. Dr. Hudson administered interscalene block. She was then positioned in the beach mo r position with all bony prominences well padded. Left upper extremity was prepped and draped in the usual sterile fashion. Using a standard deltopectoral incision, soft tissues were carefully dissect ed. Bleeding was controlled with electrocautery. The cephalic vein was retracted toward the medial side, and I bluntly dissected the deltoid off the clavipectoral fascia. Then working just lateral to the coracoid, the subscapularis was freed up from the rotator interval. The biceps tendon had previ ously ruptured, and it was no longer attached proximally. There was still some fibers remaining and exiting the joint. I then incised the subscapularis and elevated it off the capsule and tagged it fo r later repair. I was able to externally rotate the humerus, and using oscillating saw, made our hea d cut. We then retracted the humerus out of the way, removed remaining capsule and labrum both anter iorly and inferiorly, being careful to protect the axillary nerve throughout the entirety of the proc edure. A glenoid retractor was placed anteriorly and posteriorly, and we got our center guide pin dr mejía to a depth of 30 mm. We then reamed with a 24 and 30 reamer, drilled our central peg, and plac ed a modular glenoid piece and screwed it in place. We then placed 1 superior compression screw, 1 i nferior locking screw. Placed the glenosphere in place, then turned our attention to the humerus. T he entire rotator cuff was torn off. We then used our reamers and entered the femoral canal and then broached up to a size 11 with good rotational stability at 135 degree angle, being careful to get ou r rotation correct on the first several broaches using our guide. We then removed the trial implants , irrigated the humeral shaft, and then placed our final humeral stem, and then we trialed a +2, +4 i nsert. The +4 gave us a little better stability. Arm had good mobility across the body. Final +4 p brian was snapped into place. Shoulder was reduced a final time. Wound was irrigated. Subscapularis was repaired back with #2 FiberWire. The deltoid was loosely closed with 0 Vicryl. Superficial skin was closed with 2-0 Vicryl, and a running subcuticular 3-0 Monocryl stitch was used to close the ski n. I instilled 20 mL of 0.5% Marcaine with epinephrine around the incision. Steri-Strips and a ster ile dressing were applied. The patient was placed in a sling, awakened from anesthesia, taken to the recovery room in satisfactory condition. There were no immediate intraoperative complications. Philly Landrum's assistance was required throughout the entire case. IMPLANTS USED: Arthrex size 24 baseplate with a 30 mm central screw, a 39 plus 4 glenosphere, and a humeral medium insert with a size 11 stem. COMPLICATIONS: None. DRAINS: None. /[id number]/MODL
[2018-11-08] MEDS ORDERED: SENNOSIDES 1 TAB PO PRN (19:25)
[2018-11-08] MEDS: DOCUSATE SODIUM 100 MG CAP PO SCH (20:36)
[2018-11-08] MEDS: PANTOPRAZOLE SODIUM 40 MG TAB PO SCH (20:37)
[2018-11-08] MEDS: GABAPENTIN 300 MG CAP PO SCH (20:37)
[2018-11-08] MEDS: buPROPion XL 150 MG TAB PO SCH (20:37)
[2018-11-08] MEDS: TOPIRAMATE 25 MG TAB PO SCH (21:43)
[2018-11-08] MEDS: ceFAZolin 2 GM/DEXTROSE 100 ML IV SCH (21:43)
[2018-11-08] MEDS: FLUoxetine 20 MG CAP PO SCH (22:57)
[2018-11-08] MEDS: oxyCODONE IR 5 MG TAB PO PRN (23:02)
[2018-11-09] MEDS: oxyCODONE IR 5 MG TAB PO PRN ×4 (03:46→21:16)
[2018-11-09] MEDS: ceFAZolin 2 GM/DEXTROSE 100 ML IV SCH (04:06)
[2018-11-09] MEDS: LEVOTHYROXINE 125 MCG TAB PO SCH (05:07)
[2018-11-09] MEDS: HYDROCODONE/APAP 5/325 TAB PO PRN (05:54)
[2018-11-09] MEDS: CHOLECALCIFEROL VIT D3 1,000 UNITS TAB PO SCH (09:01)
[2018-11-09] MEDS: DOCUSATE SODIUM 100 MG CAP PO SCH ×2 (09:01→20:51)
[2018-11-09] MEDS: TOPIRAMATE 25 MG TAB PO SCH ×2 (09:02→20:51)
[2018-11-09] MEDS: CYANO/VITAMIN B12 1000 MCG TAB PO SCH (09:02)
[2018-11-09] MEDS: PANTOPRAZOLE SODIUM 40 MG TAB PO SCH ×2 (09:02→20:51)
[2018-11-09] MEDS: FLUoxetine 20 MG CAP PO SCH ×2 (09:02→20:51)
[2018-11-09] MEDS: LIPASE 24,000/AMYLASE/PROTEASE (CREON) 1 CAP PO SCH ×4 (09:02→19:23)
[2018-11-09] MEDS: buPROPion XL 150 MG TAB PO SCH ×2 (09:03→20:51)
[2018-11-09] MEDS: GABAPENTIN 300 MG CAP PO SCH ×3 (09:07→21:43)
[2018-11-09] MEDS: HYDROmorphONE/DILAUDID 1 MG/ML INJ IVP PRN ×2 (12:00→14:51)
[2018-11-09] MEDS: HYDROmorphONE/DILAUDID 2 MG TAB PO PRN ×2 (12:00→13:00)
--- NOTE | 2018-11-09 13:29 | SOAPPROG ---
SOAP Progress Note Assessment/Plan: Assessment: Plan: 11/09/18 13:27 POD#1 Reverse TSA LT will ask anesthesia for repeat interscalene block No ER >35 x 6 weeks Subjective: difficult to control pain since nerve block wore off Objective: dressing c/d/i moving fingers well 2+ radial pulse 5/5 grain weigher strength Vital Signs Temp Pulse Resp BP Pulse Ox 36.9 C 56 L 14 132/80 H 95 11/09/18 11:51 11/09/18 11:51 11/09/18 11:51 11/09/18 11:51 11/09/18 11:51 11/08/18 11/09/18 11/10/18 05:59 05:59 05:59 Intake Total 4400 Output Total 50 Balance 4350 ICD10 Worksheet Patient Problems: Problems Problem Status Onset Anxiety Acute Hypertension Acute Hypotension arterial Acute
--- NOTE | 2018-11-09 15:56 | ASMTCMCOM ---
CM Note CM Note Notes: Pt had planned shoulder surgery, resides alone. Pt was pre-arranged with [facility] and pt wants home care. Fannie with [facility] met with pt today. PT rec Home/C/24 hr supervision. Pt will be provided information on hiring unskilled care. Of note: Pt reports she has been to [facility] and will not consider SNF rehab D/c plan of care: Home with [facility] PT Date Signed: 11/09/2018 03:55 PM Electronically Signed By:NYDIA Pinedo
[2018-11-09] MEDS ORDERED: MIDAZOLAM 2 MG/2 ML VIAL IVP ONE (16:39)
[2018-11-09] MEDS ORDERED: fentaNYL 100 MCG/2 ML INJ IVP ONE ×2 (16:48→16:55)
[2018-11-09] MEDS ORDERED: LIPID EMULSION 20% 100 ML IV PRN (17:31)
--- NOTE | 2018-11-09 18:02 | PDPAINCON ---
Pain Management Consultation Patient referred by .: Linnea - Subjective Pain is: high, out of control Activity: able to ambulate - Assessment/Plan Assessment/Plan: other (Pt POD #1 s/p left total shoulder arthroplasty. Pt c/o pain after initial interscalene block wore off. Pt also place buprenorphine patch prior to surgery. Pain will be difficult to control with buprenorphine patch. Recommend placing interscalene catheter for post op pain control and running continous infusion via on-Q pump. Discussed plan with Dr Yarbrough and patient. Both in agreement.)
[2018-11-09] MEDS: ROPIVACAINE 0.2% 1,100 MG in PUMP SET 1 EA NB SCH (20:42)
[2018-11-10] MEDS: oxyCODONE IR 5 MG TAB PO PRN ×3 (03:11→20:41)
[2018-11-10] MEDS: HYDROmorphONE/DILAUDID 1 MG/ML INJ IVP PRN (05:21)
[2018-11-10] MEDS: LEVOTHYROXINE 125 MCG TAB PO SCH (05:22)
[2018-11-10] MEDS: HYDROCODONE/APAP 5/325 TAB PO PRN (06:31)
[2018-11-10] MEDS: ROPIVACAINE 0.2% 1,100 MG in PUMP SET 1 EA NB SCH (06:42)
[2018-11-10] MEDS ORDERED: LIPID EMULSION 20% 100 ML IV PRN (07:02)
[2018-11-10] MEDS: buPROPion XL 150 MG TAB PO SCH ×2 (08:42→20:41)
[2018-11-10] MEDS: LIPASE 24,000/AMYLASE/PROTEASE (CREON) 1 CAP PO SCH ×3 (08:42→20:41)
[2018-11-10] MEDS: CHOLECALCIFEROL VIT D3 1,000 UNITS TAB PO SCH (08:42)
[2018-11-10] MEDS: CYANO/VITAMIN B12 1000 MCG TAB PO SCH (08:42)
[2018-11-10] MEDS: DOCUSATE SODIUM 100 MG CAP PO SCH ×2 (08:42→20:41)
[2018-11-10] MEDS: FLUoxetine 20 MG CAP PO SCH ×2 (08:42→20:41)
[2018-11-10] MEDS: PANTOPRAZOLE SODIUM 40 MG TAB PO SCH ×2 (08:42→20:41)
[2018-11-10] MEDS: TOPIRAMATE 25 MG TAB PO SCH ×2 (08:42→20:41)
[2018-11-10] MEDS: GABAPENTIN 300 MG CAP PO SCH ×3 (08:42→22:19)
[2018-11-10] MEDS: HYDROmorphONE/DILAUDID 2 MG TAB PO PRN ×2 (08:55→16:02)
--- NOTE | 2018-11-10 14:55 | SOAPPROG ---
SOAP Progress Note Assessment/Plan: Assessment: Plan: 11/09/18 13:27 POD#1 Reverse TSA LT will ask anesthesia for repeat interscalene block No ER >35 x 6 weeks 11/10/18 14:53 POD#2 Lt Rev TSA PT to eval for balance/transfers DC buprenorphine patch OT no ER > 35 x 6 weeks Possible DC Thursday if pain better controlled Subjective: catheter pulled out this replaced by Dr Ponce, pain better now Objective: dressing c/d/i wearing sling stilll able to move fingers Vital Signs Temp Pulse Resp BP Pulse Ox 36.4 C 60 22 H 95/60 L 97 11/10/18 12:05 11/10/18 12:05 11/10/18 12:05 11/10/18 12:05 11/10/18 12:05 11/09/18 11/10/18 11/11/18 05:59 05:59 05:59 Intake Total 4400 600 Output Total 50 Balance 4350 600 ICD10 Worksheet Patient Problems: Problems Problem Status Onset Anxiety Acute Hypertension Acute Hypotension arterial Acute
--- NOTE | 2018-11-10 15:28 | PDMN ---
Medical Necessity Medical necessity: [facility] IP only surgery; cpt 28380 Reverse TSA
--- NOTE | 2018-11-10 18:37 | PDPAINCON ---
Pain Management Consultation Patient referred by : Linnea - Subjective Pain is: under control Activity: able to ambulate - Objective Technique: continuous peripheral nerve block Site: brachial plexus Catheter site: clean, dry, intact, no erythema/edema/exudate Sensory and motor exam: consistent with block - Assessment/Plan Assessment/Plan: pain well-controlled, continue current mgmt (Inner catheter dislodged overnight. Replaced this morning and 15 cc bolus of 0.5 % Ropivacaine given. Pain better controlled after bolus. Will continue at On-Q pump at 4 cc/hr)
[2018-11-11] MEDS: oxyCODONE IR 5 MG TAB PO PRN ×4 (04:15→17:20)
[2018-11-11] MEDS: LEVOTHYROXINE 125 MCG TAB PO SCH (05:27)
[2018-11-11] MEDS: GABAPENTIN 300 MG CAP PO SCH ×3 (08:31→22:16)
[2018-11-11] MEDS: PANTOPRAZOLE SODIUM 40 MG TAB PO SCH ×2 (08:32→20:49)
[2018-11-11] MEDS: FLUoxetine 20 MG CAP PO SCH ×2 (08:32→20:50)
[2018-11-11] MEDS: CHOLECALCIFEROL VIT D3 1,000 UNITS TAB PO SCH (08:32)
[2018-11-11] MEDS: TOPIRAMATE 25 MG TAB PO SCH ×2 (08:32→20:52)
[2018-11-11] MEDS: LIPASE 24,000/AMYLASE/PROTEASE (CREON) 1 CAP PO SCH ×3 (08:33→17:15)
[2018-11-11] MEDS: DOCUSATE SODIUM 100 MG CAP PO SCH ×2 (08:33→20:51)
[2018-11-11] MEDS: CYANO/VITAMIN B12 1000 MCG TAB PO SCH (08:33)
[2018-11-11] MEDS: buPROPion XL 150 MG TAB PO SCH ×2 (08:33→20:50)
[2018-11-11] MEDS ORDERED: Buprenorphine [Butrans 20 Mcg/Hr] TD SCH (09:00)
--- NOTE | 2018-11-11 10:36 | PDPAINCON ---
Pain Management Consultation Patient referred by : Linnea - Subjective Pain is: under control Activity: able to ambulate - Objective Technique: continuous peripheral nerve block Site: brachial plexus Continuous infusion: ropivicaine Catheter site: clean, dry, intact - Assessment/Plan Assessment/Plan: pain well-controlled, continue current mgmt (Continue ISB catheter at 4 cc/hr)
[2018-11-11] MEDS: HYDROCODONE/APAP 5/325 TAB PO PRN ×2 (12:13→20:51)
--- NOTE | 2018-11-11 12:46 | SOAPPROG ---
SOAP Progress Note Assessment/Plan: Assessment: POD#3 s/p Left reverse TSA. She reports pain is better controlled now. PT/OT is recommending a SNF. PE: Dressing is clean and dry. Wrist extension/flexion intact. NV intact LUE Plan: Plan is to discharge to SNF on Thursday. PT to eval for balance/ transfers. OT no ER > 35 x 6 weeks. Follow up in office in 14 days post op for repeat evaluation and wound check. Keep wound covered for 7 days post op. 11/11/18 12:43 Objective: Vital Signs Temp Pulse Resp BP Pulse Ox 37.1 C 61 17 98/61 L 91 L 11/11/18 11:44 11/11/18 11:44 11/11/18 11:44 11/11/18 11:44 11/11/18 11:44 11/10/18 11/11/18 11/12/18 05:59 05:59 05:59 Intake Total 600 Output Total 450 Balance 600 -450 ICD10 Worksheet Patient Problems: Problems Problem Status Onset Anxiety Acute Hypertension Acute Hypotension arterial Acute
--- NOTE | 2018-11-11 14:10 | ASMTCMCOM ---
CM Note CM Note Notes: PT/OT rec SNF. Pt is reluctant to d/c to SNF since she had a poor experience with [facility]. Pt agrees she needs SNF and requests referral to [facility], referral sent in [employer]. D/c plan of care: [facility] Thursday Date Signed: 11/11/2018 02:09 PM Electronically Signed By:NYDIA Pinedo
[2018-11-11] MEDS: POLYETHYLENE GLYCOL 3350 17 GM PKT PO PRN (20:52)
[2018-11-11] MEDS: HYDROmorphONE/DILAUDID 2 MG TAB PO PRN (22:31)
[2018-11-12] MEDS: oxyCODONE IR 5 MG TAB PO PRN ×3 (03:36→17:15)
[2018-11-12] MEDS: LEVOTHYROXINE 112 MCG TAB PO SCH (05:09)
[2018-11-12] MEDS: HYDROCODONE/APAP 5/325 TAB PO PRN (09:12)
[2018-11-12] MEDS: FLUoxetine 20 MG CAP PO SCH ×2 (09:13→21:03)
[2018-11-12] MEDS: buPROPion XL 150 MG TAB PO SCH ×2 (09:14→21:04)
[2018-11-12] MEDS: CYANO/VITAMIN B12 1000 MCG TAB PO SCH (09:14)
[2018-11-12] MEDS: CHOLECALCIFEROL VIT D3 1,000 UNITS TAB PO SCH (09:14)
[2018-11-12] MEDS: GABAPENTIN 300 MG CAP PO SCH ×3 (09:15→21:04)
[2018-11-12] MEDS: DOCUSATE SODIUM 100 MG CAP PO SCH ×2 (09:15→21:04)
[2018-11-12] MEDS: PANTOPRAZOLE SODIUM 40 MG TAB PO SCH ×2 (09:15→21:03)
[2018-11-12] MEDS: TOPIRAMATE 25 MG TAB PO SCH ×2 (09:16→21:03)
[2018-11-12] MEDS: POLYETHYLENE GLYCOL 3350 17 GM PKT PO PRN (09:17)
[2018-11-12] MEDS: LIPASE 24,000/AMYLASE/PROTEASE (CREON) 1 CAP PO SCH ×3 (10:20→18:24)
--- NOTE | 2018-11-12 14:21 | SOAPPROG ---
SOAP Progress Note Assessment/Plan: Assessment: Plan: 11/09/18 13:27 POD#1 Reverse TSA LT will ask anesthesia for repeat interscalene block No ER >35 x 6 weeks 11/10/18 14:53 POD#2 Lt Rev TSA PT to eval for balance/transfers DC buprenorphine patch OT no ER > 35 x 6 weeks Possible DC Thursday if pain better controlled 11/12/18 14:20 DC indwelling catheter prior to DC to SNF DC to SNF Thursday keep incision covered x 7 days F/U [place] 10-14 days PROM all planes except no ER >35 x 6 weeks Subjective: Pain better, worked with PT/OT today Objective: dressing changed, incision c/d/i some feeling in LT hand able to move finger2+ radial pulse Vital Signs Temp Pulse Resp BP Pulse Ox 36.7 C 78 20 99/53 L 98 11/12/18 11:15 11/12/18 11:15 11/12/18 11:15 11/12/18 11:15 11/12/18 11:15 11/11/18 11/12/18 11/13/18 05:59 05:59 05:59 Intake Total 300 400 Output Total 450 950 Balance -450 -650 400 ICD10 Worksheet Patient Problems: Problems Problem Status Onset Anxiety Acute Hypertension Acute Hypotension arterial Acute
--- NOTE | 2018-11-12 14:23 | PDIAF ---
- Diagnosis Diagnosis: OA LT shoulder s/p reverse LT TSA Code Status: Full Code - Medication Management Discharge Medications: electronically signed and located in the Home Medication List. PICC Care - Routine: N/A - Orders Services needed: Physical Therapy, Occupational Therapy Isolation Type: None Diet Recommendation: no restrictions on diet Diet Texture: Regular Texture Diet Wound Care Instructions: Keep incision coverd x 7 days post op Sutures/Alix Site: Lt shoulder Activity/Weight Bearing Restrictions: PROM all planes except no ER >35 x 6 weeks Additional Instructions: keep wound covered for 7 days post op - Follow Up Care Current Providers and Referrals: Nelson Yarbrough MD [Medical Doctor] - (14 days post op) Colby Mcqueen MD [Primary Care Provider] -
--- NOTE | 2018-11-12 14:53 | ASMTCMCOM ---
CM Note CM Note Notes: Met with patient to confirm she is still agreeable to SNF at [facility]. Patient did state this morning she was not willing to go and wanted to d/c home. Discussed above with son, Shmuel #[phone], he and spoke with patient about risk of discharging home - patient now in agreement. Kera from the [facility] on site today and able to accept on Thursday. CM to call #[phone] to coordinate discharge. I have spoken to Dr. Yarbrough and he is in agreement with plan. IM complete and in chart. CM will follow. Plan: [facility] on Thursday Date Signed: 11/12/2018 02:53 PM Electronically Signed By:Gabrielle Crews RN
[2018-11-12] MEDS ORDERED: BUPIVACAINE/EPI 0.5% 30 ML SDV ONE (20:36)
[2018-11-12] MEDS ORDERED: fentaNYL 100 MCG/2 ML INJ IVP ONE (20:42)
--- NOTE | 2018-11-12 21:17 | PDPAINCON ---
Pain Management Consultation Patient referred by : Linnea - Subjective Pain is: high, but manageable (Pain increasing since this morning) Activity: able to ambulate - Objective Technique: continuous peripheral nerve block Site: brachial plexus Continuous infusion: ropivicaine Sensory and motor exam: block has resolved, no apparent ill effects Vital signs: stable - Assessment/Plan Assessment/Plan: other (Pt states pain increasing since this morning. Noticed that interscalene catheter became dislodge and almost completely out of skin. Removed catheter and decision made to perform single shot interscalene catheter for pain control. )
[2018-11-12] MEDS ORDERED: LIPID EMULSION 20% 100 ML IV PRN (21:20)
[2018-11-13] MEDS: oxyCODONE IR 5 MG TAB PO PRN ×2 (06:00→10:00)
[2018-11-13] MEDS: LEVOTHYROXINE 112 MCG TAB PO SCH (06:00)
[2018-11-13] MEDS: CHOLECALCIFEROL VIT D3 1,000 UNITS TAB PO SCH (09:10)
[2018-11-13] MEDS: buPROPion XL 150 MG TAB PO SCH (09:10)
[2018-11-13] MEDS: GABAPENTIN 300 MG CAP PO SCH (09:10)
[2018-11-13] MEDS: TOPIRAMATE 25 MG TAB PO SCH (09:11)
[2018-11-13] MEDS: DOCUSATE SODIUM 100 MG CAP PO SCH (09:11)
[2018-11-13] MEDS: FLUoxetine 20 MG CAP PO SCH (09:11)
[2018-11-13] MEDS: LIPASE 24,000/AMYLASE/PROTEASE (CREON) 1 CAP PO SCH ×2 (09:11→13:00)
[2018-11-13] MEDS: PANTOPRAZOLE SODIUM 40 MG TAB PO SCH (09:11)
[2018-11-13] MEDS: CYANO/VITAMIN B12 1000 MCG TAB PO SCH (09:11)
[2018-11-13] MEDS: POLYETHYLENE GLYCOL 3350 17 GM PKT PO PRN (10:00)
--- NOTE | 2018-11-13 11:09 | ASMTLACE ---
PRETTY Length of stay for Answers: 3 days current admission Acuity / Level of Answers: Yes Care: Did the patient have an inpatient admission? Comorbidities - select Answers: Any tumor (including all that apply lymphoma or leukemia) Cerebrovascular disease (CVA, TIA, aneurysms, vasc ular dementia) Opioid dependence / Chronic pain Other Notes: Hypothyroid # of Emergency department Answers: 0 visits in the last 6 months Social determinants Answers: Mental health diagnosis (anxiety, depression, pers onality disorders, etc.) Score: 17 Date Signed: 11/13/2018 11:08 AM Electronically Signed By:Zulema Kraus RN
--- NOTE | 2018-11-13 11:11 | ASMTDCNOTE ---
Case Management Discharge Discharge Order Complete? Answers: Yes Patient to Obtain Answers: Other Notes: [facility] Medications Transportation Arranged Answers: Other Notes: [facility] Transport will Pick (Date 11/13/2018 01:00 PM & Time) Faxed Final Orders Answers: Yes Family Notified Answers: Yes Notes: [facility] Discharge Comments Notes: Patient discharged to the [facility]. Neelima at the facility set up transportation. NATHANIEL November report Date Signed: 11/13/2018 11:10 AM Electronically Signed By:Zulema Kraus RN
[2018-11-13 11:15] VITALS: BP 133/71
[2018-11-13] MEDS: HYDROmorphONE/DILAUDID 2 MG TAB PO PRN ×2 (11:18→13:00)
--- NOTE | 2018-11-14 10:32 | ASDISCHSUM ---
Discharge Information Plan Status:SNF Medically Cleared to Leave: Discharge Date:11/13/2018 01:40 PM CM D/C Disposition: ADT D/C Disposition:Custodial Facility Projected Discharge Date:11/13/2018 11:00 AM Transportation at D/C: Discharge Delay Reason: Follow-Up Date:11/13/2018 11:00 AM Discharge Slot: Final Diagnosis: Placement Information Referral Type:*Home Health Care Services Referral ID:[id number] Provider Name: Address 1: Phone Number: Address 2: Fax Number: City: Selection Factors: State: Referral Type:*[facility]/SNF Referral ID:[id number] Provider Name:[facility] Address 1:[address] Address 2: City:[place] Selection Factors: State:[place] Patient Contact Information Contact Name:NENITA Relationship:Son Address:[address] Work Phone: City:[facility] Phone: [facility]/Zip Code:[place] [address] Email: Financial Information Financial Class:Medicare Primary Plan Desc:MEDICARE INPATIENT Primary Plan Number:[id number] Secondary Plan Desc:[place] Secondary Plan Number:[id number] Assessment Information LACE LACE Length of stay for Answers: 3 days current admission Acuity / Level of Answers: Yes Care: Did the patient have an inpatient admission? Comorbidities - select Answers: Any tumor (including all that apply lymphoma or leukemia) Cerebrovascular disease (CVA, TIA, aneurysms, vasc ular dementia) Opioid dependence / Chronic pain Other Notes: Hypothyroid # of Emergency department Answers: 0 visits in the last 6 months Social determinants Answers: Mental health diagnosis (anxiety, depression, pers onality disorders, etc.) Score: 17 Date Signed: 11/13/2018 11:08 AM Electronically Signed By:Zulema Kraus RN [facility] CM Progress Note CM Note CM Note Notes: Pt had planned shoulder surgery, resides alone. Pt was pre-arranged with [facility] and pt wants home care. Fannie with [facility] met with pt today. PT rec Home/[facility]/24 hr supervision. Pt will be provided information on hiring unskilled care. Of note: Pt reports she has been to [facility] and will not consider SNF rehab D/c plan of care: Home with [facility] PT Date Signed: 11/09/2018 03:55 PM Electronically Signed By:NYDIA Pinedo [facility] CM Progress Note CM Note CM Note Notes: PT/OT rec SNF. Pt is reluctant to d/c to SNF since she had a poor experience with [facility]. Pt agrees she needs SNF and requests referral to [facility], referral sent in [employer]. D/c plan of care: [facility] Thursday Date Signed: 11/11/2018 02:09 PM Electronically Signed By:NYDIA Pinedo [facility] CM Progress Note CM Note CM Note Notes: Met with patient to confirm she is still agreeable to SNF at the [facility]. Patient did state this morning she was not willing to go and wanted to d/c home. Discussed above with son, Shmuel #[phone], he and spoke with patient about risk of discharging home - patient now in agreement. Kera from [facility] on site today and able to accept on Thursday. CM to call #[phone] to coordinate discharge. I have spoken to Dr. Yarbrough and he is in agreement with plan. IM complete and in chart. CM will follow. Plan: [facility] on Thursday Date Signed: 11/12/2018 02:53 PM Electronically Signed By:Gabrielle Crews RN Case Management Discharge Plan Note Case Management Discharge Discharge Order Complete? Answers: Yes Patient to Obtain Answers: Other Notes: [facility] Medications Transportation Arranged Answers: Other Notes: [facility] Transport will Pick (Date 11/13/2018 01:00 PM & Time) Faxed Final Orders Answers: Yes Family Notified Answers: Yes Notes: [place] Discharge Comments Notes: Patient discharged to the [facility]. Neelima at the facility set up transportation. NATHANIEL November report Date Signed: 11/13/2018 11:10 AM Electronically Signed By:Zulema Kraus RN Intervention Information Intervention Type:*Incorrect Registration Date of Service:11/08/2018 09:45 PM Patient Type:Inpatient Staff Member:Andie Rae Hours: Discipline: Severity: Comment: Intervention Type:*CASTLE-Signed Date of Service:11/09/2018 12:27 PM Patient Type:Observation Staff Member:Kiki Bone Hours: Discipline: Severity: Comment: Intervention Type:*IM-Signed Date of Service:11/12/2018 10:54 AM Patient Type:Inpatient Staff Member:Kiki Bone Hours: Discipline: Severity: Comment:
== END 2018-11-13 13:40 | DRG 483 ==
LOC: INTOOBSV 10:32 → F3N 10:32 → OBSVTOIN 11-10 10:13
PROVIDERS: ADMIT Orthopaedic Surgery; ATTEND Orthopaedic Surgery
PROC: 0RRK00Z Replacement of Left Shoulder Joint with Reverse Ball and Socket Synthetic Substitute, Open Approach (ICD-10-PCS; principal; 2018-11-08 12:45)
DX: M19.012 Primary osteoarthritis, left shoulder (principal); G89.18 Other acute postprocedural pain; K21.9 Gastro-esophageal reflux disease without esophagitis; F31.9 Bipolar disorder, unspecified; E03.9 Hypothyroidism, unspecified; M81.0 Age-related osteoporosis without current pathological fracture; Z85.850 Personal history of malignant neoplasm of thyroid; Z86.73 Personal history of transient ischemic attack (TIA), and cerebral infarction without residual deficits; Z96.641 Presence of right artificial hip joint; Z96.652 Presence of left artificial knee joint
CPT/HCPCS: 97110-GO; 97116-GP; 97161-GP; 97165-GO; 97530-GP; 97535-GO; C1713; J0690; J1100; J1170; J2250; J2405; J2704; J2710; J2795; J3010

== ENCOUNTER → 2019-02-05 | Outpatient (CLI) | payer OTHER, MEDICAID | LOC: CIMAGING 08:43 ==

== ENCOUNTER 2019-02-17 07:31 | Day surgery (SDC) | payer OTHER, MEDICAID | END 2019-02-17 11:26 | disposition home or self-care (01) | LOC: FCATH 07:31 ==